=== PATIENT | female | born 1985 | race Caucasian/White ===

== ENCOUNTER 2016-08-02 10:34 | Emergency (ER) | payer OTHER ==
[2016-08-02] MEDS ORDERED: ONDANSETRON 4MG/2ML VIAL (J2405) As Ordered ONE (12:02)
[2016-08-02] MEDS ORDERED: MORPHINE 2 MG/ML 1ML SYRINGE As Ordered ONE (12:02)
[2016-08-02 12:18] LABS: BASO % 0.2 % (0.0-1.0); EOS # 0.2 K/mm3 (0.0-0.50); EOS % 1.4 % (0.0-3.0); LARGE UNSTAINED CELL # 0.1 K/mm3 (0.0-0.4); LARGE UNSTAINED CELL % 0.9 % (0.0-4.0); LYMPH # 1.9 K/mm3 (1.5-4.5); LYMPH % 17.9 % (24.0-44.0); MEAN CORPUSCULAR HEMOGLOBIN 29.9 pg (27.0-33.0); MEAN CORPUSCULAR HGB CONC 34.2 g/dl (32.0-36.5); MEAN CORPUSCULAR VOLUME 87.4 fl (80.0-96.0); MONO # 0.3 K/mm3 (0.0-0.8); MONO % 3.1 % (0.0-5.0); NEUTROPHILS # 8.1 K/mm3 (1.8-7.7); NEUTROPHILS % 76.6 % (36.0-66.0); PLATELET COUNT, AUTOMATED 283 k/mm3 (150-450); RED CELL DISTRIBUTION WIDTH 12.5 % (11.5-14.5); WHITE BLOOD COUNT 10.5 K/mm3 (4.0-10.0)
[2016-08-02 12:37] LABS: ALBUMIN 3.7 GM/DL (3.2-5.2); ALBUMIN/GLOBULIN RATIO 0.86 (1.00-1.93); ALKALINE PHOSPHATASE 132 U/L (45-117); ALT/SGPT 12 U/L (12-78); ANION GAP 7 MEQ/L (8-16); AST/SGOT 19 U/L (15-37); BILIRUBIN,DIRECT < 0.1 MG/DL (0.0-0.2); BILIRUBIN,TOTAL 0.5 MG/DL (0.2-1.0); BLOOD UREA NITROGEN 11 MG/DL (7-18); CALCIUM LEVEL 8.7 MG/DL (8.5-10.1); CARBON DIOXIDE LEVEL 27 MEQ/L (21-32); CHLORIDE LEVEL 104 MEQ/L (98-107); GLOMERULAR FILTRATION RATE > 60.0 (>60); GLUCOSE, FASTING 85 MG/DL (70-105); HCG, SERUM QUANTITATIVE 56 MIU/ML; POTASSIUM SERUM 3.9 MEQ/L (3.5-5.1); SODIUM LEVEL 138 MEQ/L (136-145)
--- NOTE | 2016-08-02 13:13 | REP ---
Clinical: with vaginal bleeding and right lower quadrant pain. Technique: Transabdominal and transvaginal imaging with color Doppler evaluation of the maternal ovaries and fetus if possible. Findings: Anteverted uterus measures 6.0 x 3.4 x 4.1 cm without intrauterine identified. The bilateral ovaries are identified with normal vascularity and no evidence for torsion as well as 2.2 cm presumed left corpus luteal cyst. Right ovary measures 3.0 x 2.0 x 2.8 cm; RI equal 0.55. Left ovary measures 2.9 x 2.6 x 2.2 cm; RI equal 0.48. A moderate amount of fluid is identified in the pelvis - some of which appears complex, there is a complex structure in the right adnexa adjacent to what is believed to be the normal ovary which measures roughly 1.7 cm diameter. Findings cannot exclude ruptured right ectopic in close clinical observation is required. Impression: Moderate amount of partially complex fluid in the pelvis ill-defined right adnexal structure separate from the right ovary. There is no intrauterine , and findings are highly suspicious for ruptured ectopic . Correlation with serial HCG levels and close clinical observation is recommended. Signed by Destin Bender MD 08/02/2016 01:05 P
--- NOTE | 2016-08-02 13:37 | EDDOCDS ---
Physician Documentation [facility] Name: Divya Dunbar Age: 31 yrs Sex: Female : 1985 Arrival Date: 08/02/2016 Time: 10:34 Bed I2 / M2 Private MD: NO PRIMARY PHYSICIAN, . Disposition: 08/02/16 12:56 Discharged to Home/Self Care. Impression: Incomplete spontaneous without complication. - Condition is Stable. - Discharge Instructions: Incomplete Miscarriage. - Prescriptions for Hydrocodone- Acetaminophen 5-325 mg Oral Tablet - take 1 tablet by ORAL route every 6 hours As needed MDD: 4 tabs; 12 tablet. - Medication Reconciliation, Local Pharmacy Hours, Work Release Form - 3 day form. - Follow up: Emergency Department; When: As needed; Reason: Worsening of conditions. Follow up: Fela Hdz MD; When: 4 - 5 days; Reason: Wound/Symptom Recheck, Recheck today's complaints, Worsening of conditions, Continuance of care. - Problem is new. - Symptoms have improved. - Notes: Return to the ER on for a Beta-HCG recheck. Your value today is 56. Return sooner for any new or worse symptoms. Historical: - Allergies: No known drug Allergies; - Home Meds: 1. Vitamin Oral 1 tab once daily - PMHx: vaginal bleeding; - PSHx: teeth extraction; Tubes in ears; - Social history: Smoking status: Patient states was never smoker of tobacco. No barriers to communication noted, The patient speaks fluent Anguillan. - Family history: Not pertinent. - : The pt / caregiver states he / she is not on anticoagulants. Home medication list is obtained from the patient. - Exposure Risk Screening:: None identified. 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 11 in. (149.86 cm); Pain 5/10; 12:45 BP 114 / 85; Pulse 78; Resp 18; Temp 98.1; Pulse Ox 98% ; Pain 3/10; jam1 12:45 Pain 3/10; dsf 10:36 Body Mass Index 40.60 (91.17 kg, 149.86 cm) cmb MDM: 10:48 IV Saline Lock ordered. dt4 10:49 Hcg, Serum Quantitative Ordered. EDMS 10:49 CBC with Diff Ordered. EDMS 10:49 Basic Metabolic Profile Ordered. EDMS 10:49 Urinalysis Ordered. EDMS 10:49 Urine Culture Ordered. EDMS 10:49 Type & Screen Ordered. EDMS 11:55 Undress patient appropriately for examination ordered. cc10 11:55 Ondansetron 4 mg IVP once ordered. cc10 11:56 morphine 2 mg IVP once ordered. cc10 11:56 US 1st trimester Ordered. EDMS 12:01 LIVER PROFILE Ordered. EDMS 12:40 TRANSVAGINAL US Ordered. EDMS 12:40 DUPLEX SCAN LIMITED (DOPPLER) Ordered. EDMS 12:44 NOTHING BY MOUTH+DIET ordered. EDMS 12:53 CBC with Diff Reviewed. cc10 12:53 Basic Metabolic Profile Reviewed. cc10 12:53 Urinalysis Reviewed. cc10 12:53 LIVER PROFILE Reviewed. cc10 12:53 Hcg, Serum Quantitative Reviewed. cc10 13:14 Financial registration complete. lg Administered Medications: 12:08 Drug: morphine 2 mg [morphine 2 mg/mL intravenous cartridge (1 mL)] Route: IVP; Site: dsf right antecubital; 12:45 Follow up: Pain 3/10 Adult; see charted VS dsf 12:09 Drug: Ondansetron 4 mg [ondansetron HCl 2 mg/mL intravenous solution (2 mL)] Route: dsf IVP; Site: left antecubital; Signatures: Dispatcher [employer] EDMS Carina Brasher, RN RN kcs Ethan Contreras, Reg Reg Taylor Durham RN RN dsf Rigoberto Phillip PA-C PA-C cc10 Ami Donnelly PA-C PA-C dt4 The chart was reviewed and I authenticate all verbal orders and agree with the evaluation and treatment provided.Corrections: (The following items were deleted from the chart) 12:00 11:56 LIVER PROFILE+LAB ordered. EDMS EDMS MTDD
--- NOTE | 2016-08-02 13:37 | EDDOCDS ---
Nurse's Notes [facility] Name: Divya Dunbar Age: 31 yrs Sex: Female : 1985 Arrival Date: 08/02/2016 Time: 10:34 Bed I2 / M2 Private MD: NO PRIMARY PHYSICIAN, . Diagnosis: Incomplete spontaneous without complication Presentation: 08/02 10:42 Presenting complaint: Patient states: she is having severe right sided abdominal pain kcs and vaginal bleeding for the last 2 days - is 5 weeks . Risk factors: The patient reports no loss of conciousness prior to arrival. This patient has not had a hysterectomy. This patient has not begun menopause. Adult Sepsis Screening: The patient does not have new or worsening altered mentation. Patient's respiratory rate is less than 22. Systolic blood pressure is greater than 100. Patient has a qSOFA score of 0- Negative Sepsis Screen. Suicide/Homicide risk assessment- the patient denies having any suicidal and/or homicidal ideations and does not present with any other emotional, behavioral or mental health complaints. 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 Transition of care: patient was not received from another setting of care. 10:42 Acuity: KASSI Level 3 kcs 10:42 Method Of Arrival: Walkin/Carried/Asstd kcs Triage Assessment: 10:44 General: Appears comfortable, obese, well developed, well nourished, well groomed, kcs Behavior is cooperative, pleasant. Pain: Location: right lower abdomen Pain currently is 5 out of 10 on a pain scale. At worst was 7 out of 10 on a pain scale. HIV screening NA for this visit Offered previously. Neurological: Level of Consciousness is awake, alert. Respiratory: Airway is patent Respiratory effort is even, unlabored, Respiratory pattern is regular, symmetrical. : Reports vaginal bleeding that is heavy flow. Derm: Skin is intact, is healthy with good turgor, Skin is dry, Skin is normal. 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 Vitamin Oral 1 tab once daily - PMHx: vaginal bleeding; - PSHx: teeth extraction; Tubes in ears; - Social history: Smoking status: Patient states was never smoker of tobacco. No barriers to communication noted, The patient speaks fluent Russian. - Family history: Not pertinent. - : The pt / caregiver states he / she is not on anticoagulants. Home medication list is obtained from the patient. - Exposure Risk Screening:: None identified. Screenin:51 Screening information is obtained from the patient. Primary language is Russian. Fall jam1 risk: No risks identified. Assistance ADL's: requires no assistance with activities of daily living. Abuse/DV Screen: The patient / caregiver reports he/she is: not in a situation that causes fear, pain or injury. Nutritional screening: No deficits noted. Exposure Risk Screening: None identified. Advance Directives: Currently, there is no health care proxy. There is no active DNR order. There is no living will. There is no Power of Mandrel Cleaner. Advance directive information has not previously been placed in an [facility] medical record. Further advance directive information is declined. home support is adequate. Assessment: 12:00 Adult Sepsis Screening: The patient does not have new or worsening altered mentation. dsf Patient's respiratory rate is less than 22. Systolic blood pressure is greater than 100. Patient has a qSOFA score of 0- Negative Sepsis Screen. General: Appears in no apparent distress, Behavior is appropriate for age, cooperative. Pain: Location: right lower quadrant Pain currently is 6 out of 10 on a pain scale. Quality of pain is described as sharp. Neurological: Level of Consciousness is awake, alert, Oriented to person, place, time. Cardiovascular: Capillary refill < 3 seconds Heart tones S1 S2 present. Respiratory: Airway is patent Respiratory effort is even, unlabored, Respiratory pattern is regular, symmetrical, Breath sounds are clear bilaterally. GI: Abdomen is non- distended Bowel sounds present X 4 quads. Abd is soft X 4 quads Abd is tender to palpation in right lower quadrant and left lower quadrant. : Reports vaginal bleeding that is bright red light flow since 2 days ago. Derm: Skin is pink, warm & dry. 13:02 Adult Sepsis Screening: The patient does not have new or worsening altered mentation. dsf Patient's respiratory rate is less than 22. Systolic blood pressure is greater than 100. Patient has a qSOFA score of 0- Negative Sepsis Screen. General: Appears in no apparent distress, Behavior is crying. Neurological: Level of Consciousness is awake, alert, Oriented to person, place, time. Cardiovascular: No deficits noted. Respiratory: No deficits noted. Derm: Skin is pink, warm & dry. Vital Signs: 10:36 BP 143 / 81; Pulse 88; Resp 18; Temp 99.1(O); Pulse Ox 98% ; Weight 91.17 kg; Height 4 cmb ft. 11 in. (149.86 cm); Pain 5/10; 12:45 BP 114 / 85; Pulse 78; Resp 18; Temp 98.1; Pulse Ox 98% ; Pain 3/10; jam1 12:45 Pain 3/10; dsf 10:36 Body Mass Index 40.60 (91.17 kg, 149.86 cm) cmb Vitals: 10:36 Log In Time: August 02, 2016 at 10:25. cmb ED Course: 10:36 Patient visited by Guadalupe Lazar. cmb 10:36 NO PRIMARY PHYSICIAN, . is Private Physician. cmb 10:36 Patient moved to Waiting cmb 10:37 Patient moved to Pre RCE cmb 10:43 Triage Initiated kcs 11:31 Patient moved to Triage 2 rs3 11:35 Patient visited by Sandra Lozano, RN. mk4 11:36 Patient visited by Sandra Lozano RN. mk4 11:46 Rigoberto Phillip PA-C is PHCP. cc10 11:46 Calos Bautista MD is Attending Physician. cc10 11:46 Patient moved to I2 / M2 kcs 11:51 Pt greeted and oriented to ED. Patient advised of names of staff involved in care, jam1 location of call melo, wait times and NPO status. Patient has correct armband on for positive identification. Placed in gown. Bed in low position. Call light in reach. Side rails up X 1. Door closed. 11:51 Urine Culture Sent. dsf 11:51 Urinalysis Sent. dsf 11:57 Patient visited by Rigoberto Phillip PA-C. cc10 11:57 Patient visited by Rigoberto Phillip PA-C. cc10 12:00 Basic Metabolic Profile Sent. dsf 12:00 CBC with Diff Sent. dsf 12:00 Hcg, Serum Quantitative Sent. dsf 12:00 Type & Screen Sent. dsf 12:00 Inserted saline lock: 20 gauge in right antecubital area The patient tolerated the dsf procedure well. 12:01 Patient visited by Taylor Agrawal RN. dsf 12:22 Patient moved to Ultrasound am17 12:46 Patient moved to I2 / M2 am17 12:55 Fela Hdz MD is Referral Physician. cc10 13:02 The patient / caregiver is instructed regarding the plan of care and ED course. dsf 13:02 Discontinued lock intact, bleeding controlled, pressure dressing applied, No dsf redness/swelling at site. No procedures done that require assistance. Administered Medications: 12:08 Drug: morphine 2 mg [morphine 2 mg/mL intravenous cartridge (1 mL)] Route: IVP; Site: dsf right antecubital; 12:45 Follow up: Pain 09/28 Adult; see charted VS dsf 12:09 Drug: Ondansetron 4 mg [ondansetron HCl 2 mg/mL intravenous solution (2 mL)] Route: dsf IVP; Site: left antecubital; Intake: Order Results: Lab Order: Type & Screen; SPEC'M 08/02/16 11:58 Test: BLOOD TYPE; Value: O POS; Status: F Test: AB SCREEN (INDIRECT HARINI)GEL; Value: NEGATIVE; Status: F Lab Order: Hcg, Serum Quantitative; SPEC'M 08/02/16 11:58 Test: HCG, SERUM QUANTITATIVE; Value: 56; Units: MIU/ML; Status: F Test Note: ; GESTATIONAL AGE APPROXIMATE HCG RANGE (MIU/ML) 0.2-1 WEEK 5-50 1-2 WEEKS 50-500 2-3 WEEKS 100-5,000 3-4 WEEKS 500-10,000 4-5 WEEKS 1,000-50,000 5-6 WEEKS 10,000-100,000 6-8 WEEKS 15,000-200,000 2-3 MONTHS 10,000-100,000 NON FEMALES LESS THAN 3.0 Patient samples may contain human heterophilic antibodies that could react with immunoassays to give falsely elevated or depressed results. This assay has been designed to minimize interference from heterophilic antibodies. Elevated hCG levels have also been associated with trophoblastic disease and nontrophoblastic neoplasms. The possibility of having these diseases should be considered before a diagnosis of is made. This test is not intended for use as a surrogate marker for aiding in the diagnosis or monitoring the treatment of cancer patients. Siemens Zapproved methodology. Lab Order: CBC with Diff; SPEC'M 08/02/16 11:58 Test: WHITE BLOOD COUNT; Value: 10.5; Range: 4.0-10.0; Abnormal: Above high normal; Units: K/mm3; Status: F Test: RED BLOOD COUNT; Value: 4.40; Range: 4.00-5.40; Units: M/mm3; Status: F Test: HEMOGLOBIN; Value: 13.2; Range: 12.0-16.0; Units: g/dl; Status: F Test: HEMATOCRIT; Value: 38.4; Range: 36.0-47.0; Units: %; Status: F Test: MEAN CORPUSCULAR VOLUME; Value: 87.4; Range: 80.0-96.0; Units: fl; Status: F Test: MEAN CORPUSCULAR HEMOGLOBIN; Value: 29.9; Range: 27.0-33.0; Units: pg; Status: F Test: MEAN CORPUSCULAR HGB CONC; Value: 34.2; Range: 32.0-36.5; Units: g/dl; Status: F Test: RED CELL DISTRIBUTION WIDTH; Value: 12.5; Range: 11.5-14.5; Units: %; Status: F Test: PLATELET COUNT, AUTOMATED; Value: 283; Range: 150-450; Units: k/mm3; Status: F Test: NEUTROPHILS %; Value: 76.6; Range: 36.0-66.0; Abnormal: Above high normal; Units: %; Status: F Test: LYMPH %; Value: 17.9; Range: 24.0-44.0; Abnormal: Below low normal; Units: %; Status: F Test: MONO %; Value: 3.1; Range: 0.0-5.0; Units: %; Status: F Test: EOS %; Value: 1.4; Range: 0.0-3.0; Units: %; Status: F Test: BASO %; Value: 0.2; Range: 0.0-1.0; Units: %; Status: F Test: LARGE UNSTAINED CELL %; Value: 0.9; Range: 0.0-4.0; Units: %; Status: F Test: NEUTROPHILS #; Value: 8.1; Range: 1.8-7.7; Abnormal: Above high normal; Units: K/mm3; Status: F Test: LYMPH #; Value: 1.9; Range: 1.5-4.5; Units: K/mm3; Status: F Test: MONO #; Value: 0.3; Range: 0.0-0.8; Units: K/mm3; Status: F Test: EOS #; Value: 0.2; Range: 0.0-0.50; Units: K/mm3; Status: F Test: BASO #; Value: 0.0; Range: 0.0-0.2; Units: K/mm3; Status: F Test: LARGE UNSTAINED CELL #; Value: 0.1; Range: 0.0-0.4; Units: K/mm3; Status: F Lab Order: Basic Metabolic Profile; [facility] 08/02/16 11:58 Test: GLUCOSE, FASTING; Value: 85; Range: 70-105; Units: MG/DL; Status: F Test: BLOOD UREA NITROGEN; Value: 11; Range: 7-18; Units: MG/DL; Status: F Test: CREATININE FOR GFR; Value: 0.70; Range: 0.55-1.02; Units: MG/DL; Status: F Test: GLOMERULAR FILTRATION RATE; Value: > 60.0; Range: >60; Status: F Test: SODIUM LEVEL; Value: 138; Range: 136-145; Units: MEQ/L; Status: F Test: POTASSIUM SERUM; Value: 3.9; Range: 3.5-5.1; Units: MEQ/L; Status: F Test: CHLORIDE LEVEL; Value: 104; Range: 98-107; Units: MEQ/L; Status: F Test: CARBON DIOXIDE LEVEL; Value: 27; Range: 21-32; Units: MEQ/L; Status: F Test: ANION GAP; Value: 7; Range: 8-16; Abnormal: Below low normal; Units: MEQ/L; Status: F Test: CALCIUM LEVEL; Value: 8.7; Range: 8.5-10.1; Units: MG/DL; Status: F Test Note: ; Units are mL/min/1.73 m2 Chronic Kidney Disease Staging per NKF: Stage I & II GFR >=60 Normal to Mildly Decreased Stage III GFR 30-59 Moderately Decreased Stage IV GFR 15-29 Severely Decreased Stage V GFR <15 Very Little GFR Left ESRD GFR <15 on GRANT MANAGER Lab Order: Urinalysis; SPEC'M 08/02/16 11:39 Test: APPEARANCE, URINE; Value: CLOUDY; Range: CLEAR; Abnormal: Above high normal; Status: F Test: COLOR, URINE; Value: YELLOW; Range: YELLOW; Status: F Test: PH,URINE; Value: 8.0; Range: 5.0-9.0; Units: UNITS; Status: F Test: SPECIFIC GRAVITY URINE AUTO; Value: 1.016; Range: 1.002-1.035; Status: F Test: PROTEIN, URINE AUTO; Value: NEGATIVE; Range: NEGATIVE; Units: mg/dL; Status: F Test: GLUCOSE, URINE (UA) AUTO; Value: NEGATIVE; Range: NEGATIVE; Units: mg/dL; Status: F Test: KETONE, URINE AUTO; Value: NEGATIVE; Range: NEGATIVE; Units: mg/dL; Status: F Test: UROBILINOGEN, URINE AUTO; Value: 0.2; Range: 0.0-2.0; Units: mg/dL; Status: F Test: BILIRUBIN, URINE AUTO; Value: NEGATIVE; Range: NEGATIVE; Status: F Test: NITRITE, URINE AUTO; Value: NEGATIVE; Range: NEGATIVE; Status: F Test: LEUKOCYTE ESTERASE, URINE AUTO; Value: NEGATIVE; Range: NEGATIVE; Status: F Test: BLOOD, URINE BLOOD; Value: 3+; Range: NEGATIVE; Abnormal: Above high normal; Status: F Test: WBC, URINE AUTO; Value: 2; Range: 0-3; Units: /HPF; Status: F Test: RBC, URINE AUTO; Value: 30; Range: 0-3; Abnormal: Above high normal; Units: /HPF; Status: F Test: BACTERIA, URINE AUTO; Value: 3+; Range: NEGATIVE; Abnormal: Above high normal; Status: F Test: SQUAMOUS EPITHELIAL CELL UR AU; Value: 0; Range: 0-6; Units: /HPF; Status: F Test: HYALINE CAST, URINE AUTO; Value: 0; Range: 0-1; Units: /LPF; Status: F Lab Order: LIVER PROFILE; SPEC'M 08/02/16 11:58 Test: AST/SGOT; Value: 19; Range: 15-37; Units: U/L; Status: F Test: ALT/SGPT; Value: 12; Range: 12-78; Units: U/L; Status: F Test: ALKALINE PHOSPHATASE; Value: 132; Range: 45-117; Abnormal: Above high normal; Units: U/L; Status: F Test: BILIRUBIN,TOTAL; Value: 0.5; Range: 0.2-1.0; Units: MG/DL; Status: F Test: BILIRUBIN,DIRECT; Value: < 0.1; Range: 0.0-0.2; Units: MG/DL; Status: F Test: TOTAL PROTEIN; Value: 8.0; Range: 6.4-8.2; Units: GM/DL; Status: F Test: ALBUMIN; Value: 3.7; Range: 3.2-5.2; Units: GM/DL; Status: F Test: ALBUMIN/GLOBULIN RATIO; Value: 0.86; Range: 1.00-1.93; Abnormal: Below low normal; Status: F Outcome: 12:56 Discharge ordered by Provider. cc10 13:02 Discharge Assessment: Patient awake, alert and oriented x 3. No cognitive and/or dsf functional deficits noted. Patient verbalized understanding of disposition instructions. patient administered narcotics - yes. Pt provided with safe discharge. The following High Risk Discharge criteria are identified: None. Discharged to home ambulatory. Condition: stable. Discharge instructions given to patient, Instructed on discharge instructions, follow up and referral plans. medication usage, no driving heavy equipment, Demonstrated understanding of instructions, medications, Pt was receptive of discharge instructions/ teaching. Prescriptions given X 1. Ultrasound Study completed. Property sent home with patient. 13:36 Patient left the ED. f Signatures: Carina Brasher, RN RN Bridgette Scruggs, SEARCH PLANNER SEARCH PLANNER [email or web address] Danii Rocha RN RN rs3 Taylor Agrawal RN RN dsf Guadalupe Lazar Margaret, RN RN mk4 Valeri Alvares am17 Rigoberto Phillip, PA-C PA-C cc10 Corrections: (The following items were deleted from the chart) 12:00 12:00 LIVER PROFILE+LAB sent. dsf EDMS MTDD
--- NOTE | 2016-08-04 14:37 | EDDOCDS ---
Physician Documentation [facility] Name: Divya Dunbar Age: 31 yrs Sex: Female : 1985 Arrival Date: 08/02/2016 Time: 10:34 Bed I2 / M2 Private MD: NO PRIMARY PHYSICIAN, . Disposition: 08/02 13:43 Chart complete. Chart complete. cc10 Disposition: 08/02/16 12:56 Discharged to Home/Self Care. Impression: Incomplete spontaneous without complication. - Condition is Stable. - Discharge Instructions: Incomplete Miscarriage. - Prescriptions for Hydrocodone- Acetaminophen 5-325 mg Oral Tablet - take 1 tablet by ORAL route every 6 hours As needed MDD: 4 tabs; 12 tablet. - Medication Reconciliation, Local Pharmacy Hours, Work Release Form - 3 day form. - Follow up: Emergency Department; When: As needed; Reason: Worsening of conditions. Follow up: Fela Hdz MD; When: 4 - 5 days; Reason: Wound/Symptom Recheck, Recheck today's complaints, Worsening of conditions, Continuance of care. - Problem is new. - Symptoms have improved. - Notes: Return to the ER on for a Beta-HCG recheck. Your value today is 56. Return sooner for any new or worse symptoms. Historical: - Allergies: No known drug Allergies; - Home Meds: 1. Vitamin Oral 1 tab once daily - PMHx: vaginal bleeding; - PSHx: teeth extraction; Tubes in ears; - Social history: Smoking status: Patient states was never smoker of tobacco. No barriers to communication noted, The patient speaks fluent Italian. - Family history: Not pertinent. - : The pt / caregiver states he / she is not on anticoagulants. Home medication list is obtained from the patient. - Exposure Risk Screening:: None identified. 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 11 in. (149.86 cm); Pain 5/10; 12:45 BP 114 / 85; Pulse 78; Resp 18; Temp 98.1; Pulse Ox 98% ; Pain 3/10; jam1 12:45 Pain 3/10; dsf 10:36 Body Mass Index 40.60 (91.17 kg, 149.86 cm) cmb Procedures: 13:44 Ultrasound: Discussed results of the ultrasound with Dr. Hdz twice and he does feel cc10 this is a miscarriage. Given her findings and the decrease in her HCG. She is to return on Saturday for a recheck. Strict return instructions given to the patient and close f/u advised. . MDM: 10:48 IV Saline Lock ordered. dt4 10:49 Hcg, Serum Quantitative Ordered. EDMS 10:49 CBC with Diff Ordered. EDMS 10:49 Basic Metabolic Profile Ordered. EDMS 10:49 Urinalysis Ordered. EDMS 10:49 Urine Culture Ordered. EDMS 10:49 Type & Screen Ordered. EDMS 11:55 Undress patient appropriately for examination ordered. cc10 11:55 Ondansetron 4 mg IVP once ordered. cc10 11:56 morphine 2 mg IVP once ordered. cc10 11:56 US 1st trimester Ordered. EDMS 12:01 LIVER PROFILE Ordered. EDMS 12:40 TRANSVAGINAL US Ordered. EDMS 12:40 DUPLEX SCAN LIMITED (DOPPLER) Ordered. EDMS 12:44 NOTHING BY MOUTH+DIET ordered. EDMS 12:53 CBC with Diff Reviewed. cc10 12:53 Basic Metabolic Profile Reviewed. cc10 12:53 Urinalysis Reviewed. cc10 12:53 LIVER PROFILE Reviewed. cc10 12:53 Hcg, Serum Quantitative Reviewed. cc10 13:14 Financial registration complete. lg 14:00 [facility] Payment Agreement was scanned into Qwbcg and attached to record. lg 08/03 09:38 T-Sheet-- Draft Copy was scanned into Qwbcg and attached to record. gb 09:38 Radiology Report was scanned into Qwbcg and attached to record. gb Administered Medications: 08/02 12:08 Drug: morphine 2 mg [morphine 2 mg/mL intravenous cartridge (1 mL)] Route: IVP; Site: dsf right antecubital; 12:45 Follow up: Pain 3/10 Adult; see charted VS dsf 12:09 Drug: Ondansetron 4 mg [ondansetron HCl 2 mg/mL intravenous solution (2 mL)] Route: dsf IVP; Site: left antecubital; Signatures: Dispatcher [employer] EDMS Carina Brasher RN RN kcs Sharonda Kam, Reg Reg gb Ethan Contreras, Reg Reg lg Tayolr Agrawal RN RN dsf [place], Colin, GISELLE PAEric cc10 Ami Donnelly PA-C PAEric dt4 The chart was reviewed and I authenticate all verbal orders and agree with the evaluation and treatment provided.Corrections: (The following items were deleted from the chart) 12:00 11:56 LIVER PROFILE+LAB ordered. EDMS EDMS Attachments: 14:00 [facility] Payment Agreement lg 08/03 09:38 T-Sheet-- Draft Copy gb Chart Complete MTDD
--- NOTE | 2016-08-04 14:37 | EDDOCDS ---
[facility] Name: Divya Dunbar Age: 31 yrs Sex: Female : 1985 Arrival Date: 08/02/2016 Time: 10:34 Bed I2 / M2 Private MD: NO PRIMARY PHYSICIAN, . Diagnosis: Incomplete spontaneous without complication Presentation: 08/02 10:42 Presenting complaint: Patient states: she is having severe right sided abdominal pain kcs and vaginal bleeding for the last 2 days - is 5 weeks . Risk factors: The patient reports no loss of conciousness prior to arrival. This patient has not had a hysterectomy. This patient has not begun menopause. Adult Sepsis Screening: The patient does not have new or worsening altered mentation. Patient's respiratory rate is less than 22. Systolic blood pressure is greater than 100. Patient has a qSOFA score of 0- Negative Sepsis Screen. Suicide/Homicide risk assessment- the patient denies having any suicidal and/or homicidal ideations and does not present with any other emotional, behavioral or mental health complaints. Status: Patient is not a surgical services director or dependent. Transition of care: patient was not received from another setting of care. 10:42 Acuity: KASSI Level 3 kcs 10:42 Method Of Arrival: Walkin/Carried/Asstd kcs Triage Assessment: 10:44 General: Appears comfortable, obese, well developed, well nourished, well groomed, kcs Behavior is cooperative, pleasant. Pain: Location: right lower abdomen Pain currently is 5 out of 10 on a pain scale. At worst was 7 out of 10 on a pain scale. HIV screening NA for this visit Offered previously. Neurological: Level of Consciousness is awake, alert. Respiratory: Airway is patent Respiratory effort is even, unlabored, Respiratory pattern is regular, symmetrical. : Reports vaginal bleeding that is heavy flow. Derm: Skin is intact, is healthy with good turgor, Skin is dry, Skin is normal. FINANCIAL SYSTEMS ANALYST: 10:44 1, Full Term 0, Premature 0, 0, Living 0, LMP 06/13/2016 kcs Historical: - Allergies: No known drug Allergies; - Home Meds: 1. Vitamin Oral 1 tab once daily - PMHx: vaginal bleeding; - PSHx: teeth extraction; Tubes in ears; - Social history: Smoking status: Patient states was never smoker of tobacco. No barriers to communication noted, The patient speaks fluent Barbadian. - Family history: Not pertinent. - : The pt / caregiver states he / she is not on anticoagulants. Home medication list is obtained from the patient. - Exposure Risk Screening:: None identified. Screenin:51 Screening information is obtained from the patient. Primary language is Barbadian. Fall jam1 risk: No risks identified. Assistance ADL's: requires no assistance with activities of daily living. Abuse/DV Screen: The patient / caregiver reports he/she is: not in a situation that causes fear, pain or injury. Nutritional screening: No deficits noted. Exposure Risk Screening: None identified. Advance Directives: Currently, there is no health care proxy. There is no active DNR order. There is no living will. There is no Power of Supervisor D[place]. Advance directive information has not previously been placed in an [facility] medical record. Further advance directive information is declined. home support is adequate. Assessment: 12:00 Adult Sepsis Screening: The patient does not have new or worsening altered mentation. dsf Patient's respiratory rate is less than 22. Systolic blood pressure is greater than 100. Patient has a qSOFA score of 0- Negative Sepsis Screen. General: Appears in no apparent distress, Behavior is appropriate for age, cooperative. Pain: Location: right lower quadrant Pain currently is 6 out of 10 on a pain scale. Quality of pain is described as sharp. Neurological: Level of Consciousness is awake, alert, Oriented to person, place, time. Cardiovascular: Capillary refill < 3 seconds Heart tones S1 S2 present. Respiratory: Airway is patent Respiratory effort is even, unlabored, Respiratory pattern is regular, symmetrical, Breath sounds are clear bilaterally. GI: Abdomen is non- distended Bowel sounds present X 4 quads. Abd is soft X 4 quads Abd is tender to palpation in right lower quadrant and left lower quadrant. : Reports vaginal bleeding that is bright red light flow since 2 days ago. Derm: Skin is pink, warm & dry. 13:02 Adult Sepsis Screening: The patient does not have new or worsening altered mentation. dsf Patient's respiratory rate is less than 22. Systolic blood pressure is greater than 100. Patient has a qSOFA score of 0- Negative Sepsis Screen. General: Appears in no apparent distress, Behavior is crying. Neurological: Level of Consciousness is awake, alert, Oriented to person, place, time. Cardiovascular: No deficits noted. Respiratory: No deficits noted. Derm: Skin is pink, warm & dry. Vital Signs: 10:36 BP 143 / 81; Pulse 88; Resp 18; Temp 99.1(O); Pulse Ox 98% ; Weight 91.17 kg; Height 4 cmb ft. 11 in. (149.86 cm); Pain 5/10; 12:45 BP 114 / 85; Pulse 78; Resp 18; Temp 98.1; Pulse Ox 98% ; Pain 3/10; jam1 12:45 Pain 3/10; dsf 10:36 Body Mass Index 40.60 (91.17 kg, 149.86 cm) cmb Vitals: 10:36 Log In Time: August 02, 2016 at 10:25. cmb ED Course: 10:36 Patient visited by Guadalupe Lazar. cmb 10:36 NO PRIMARY PHYSICIAN, . is Private Physician. cmb 10:36 Patient moved to Waiting cmb 10:37 Patient moved to Pre RCE cmb 10:43 Triage Initiated kcs 11:31 Patient moved to Triage 2 rs3 11:35 Patient visited by Sandra Lozano, RN. mk4 11:36 Patient visited by Sandra Lozano RN. mk4 11:46 Rigoberto Phillip PA-C is PHCP. cc10 11:46 Calos Bautista MD is Attending Physician. cc10 11:46 Patient moved to I2 / M2 kcs 11:51 Pt greeted and oriented to ED. Patient advised of names of staff involved in care, jam1 location of call melo, wait times and NPO status. Patient has correct armband on for positive identification. Placed in gown. Bed in low position. Call light in reach. Side rails up X 1. Door closed. 11:51 Urine Culture Sent. dsf 11:51 Urinalysis Sent. dsf 11:57 Patient visited by Rigoberto Phillip PA-C. cc10 11:57 Patient visited by Rigoberto Phillip PA-C. cc10 12:00 Basic Metabolic Profile Sent. dsf 12:00 CBC with Diff Sent. dsf 12:00 Hcg, Serum Quantitative Sent. dsf 12:00 Type & Screen Sent. dsf 12:00 Inserted saline lock: 20 gauge in right antecubital area The patient tolerated the dsf procedure well. 12:01 Patient visited by Taylor Agrawal RN. dsf 12:22 Patient moved to Ultrasound am17 12:46 Patient moved to I2 / M2 am17 12:55 Fela Hdz MD is Referral Physician. cc10 13:02 The patient / caregiver is instructed regarding the plan of care and ED course. dsf 13:02 Discontinued lock intact, bleeding controlled, pressure dressing applied, No dsf redness/swelling at site. No procedures done that require assistance. 13:45 US 1st trimester Returned. EDMS 14:00 [facility] Payment Agreement was scanned into [employer] and attached to record. lg 08/03 09:38 T-Sheet-- Draft Copy was scanned into [employer] and attached to record. gb 09:38 Radiology Report was scanned into [employer] and attached to record. gb Administered Medications: 08/02 12:08 Drug: morphine 2 mg [morphine 2 mg/mL intravenous cartridge (1 mL)] Route: IVP; Site: dsf right antecubital; 12:45 Follow up: Pain 3/10 Adult; see charted VS dsf 12:09 Drug: Ondansetron 4 mg [ondansetron HCl 2 mg/mL intravenous solution (2 mL)] Route: dsf IVP; Site: left antecubital; Intake: Order Results: Lab Order: Type & Screen; SPEC'M 08/02/16 11:58 Test: BLOOD TYPE; Value: O POS; Status: F Test: AB SCREEN (INDIRECT HARINI)GEL; Value: NEGATIVE; Status: F Lab Order: Hcg, Serum Quantitative; SPEC'M 08/02/16 11:58 Test: HCG, SERUM QUANTITATIVE; Value: 56; Units: MIU/ML; Status: F Test Note: ; GESTATIONAL AGE APPROXIMATE HCG RANGE (MIU/ML) 0.2-1 WEEK 5-50 1-2 WEEKS 50-500 2-3 WEEKS 100-5,000 3-4 WEEKS 500-10,000 4-5 WEEKS 1,000-50,000 5-6 WEEKS 10,000-100,000 6-8 WEEKS 15,000-200,000 2-3 MONTHS 10,000-100,000 NON FEMALES LESS THAN 3.0 Patient samples may contain human heterophilic antibodies that could react with immunoassays to give falsely elevated or depressed results. This assay has been designed to minimize interference from heterophilic antibodies. Elevated hCG levels have also been associated with trophoblastic disease and nontrophoblastic neoplasms. The possibility of having these diseases should be considered before a diagnosis of is made. This test is not intended for use as a surrogate marker for aiding in the diagnosis or monitoring the treatment of cancer patients. Siemens No.1 Traveller methodology. Lab Order: CBC with Diff; SPEC'M 08/02/16 11:58 Test: WHITE BLOOD COUNT; Value: 10.5; Range: 4.0-10.0; Abnormal: Above high normal; Units: K/mm3; Status: F Test: RED BLOOD COUNT; Value: 4.40; Range: 4.00-5.40; Units: M/mm3; Status: F Test: HEMOGLOBIN; Value: 13.2; Range: 12.0-16.0; Units: g/dl; Status: F Test: HEMATOCRIT; Value: 38.4; Range: 36.0-47.0; Units: %; Status: F Test: MEAN CORPUSCULAR VOLUME; Value: 87.4; Range: 80.0-96.0; Units: fl; Status: F Test: MEAN CORPUSCULAR HEMOGLOBIN; Value: 29.9; Range: 27.0-33.0; Units: pg; Status: F Test: MEAN CORPUSCULAR HGB CONC; Value: 34.2; Range: 32.0-36.5; Units: g/dl; Status: F Test: RED CELL DISTRIBUTION WIDTH; Value: 12.5; Range: 11.5-14.5; Units: %; Status: F Test: PLATELET COUNT, AUTOMATED; Value: 283; Range: 150-450; Units: k/mm3; Status: F Test: NEUTROPHILS %; Value: 76.6; Range: 36.0-66.0; Abnormal: Above high normal; Units: %; Status: F Test: LYMPH %; Value: 17.9; Range: 24.0-44.0; Abnormal: Below low normal; Units: %; Status: F Test: MONO %; Value: 3.1; Range: 0.0-5.0; Units: %; Status: F Test: EOS %; Value: 1.4; Range: 0.0-3.0; Units: %; Status: F Test: BASO %; Value: 0.2; Range: 0.0-1.0; Units: %; Status: F Test: LARGE UNSTAINED CELL %; Value: 0.9; Range: 0.0-4.0; Units: %; Status: F Test: NEUTROPHILS #; Value: 8.1; Range: 1.8-7.7; Abnormal: Above high normal; Units: K/mm3; Status: F Test: LYMPH #; Value: 1.9; Range: 1.5-4.5; Units: K/mm3; Status: F Test: MONO #; Value: 0.3; Range: 0.0-0.8; Units: K/mm3; Status: F Test: EOS #; Value: 0.2; Range: 0.0-0.50; Units: K/mm3; Status: F Test: BASO #; Value: 0.0; Range: 0.0-0.2; Units: K/mm3; Status: F Test: LARGE UNSTAINED CELL #; Value: 0.1; Range: 0.0-0.4; Units: K/mm3; Status: F Lab Order: Basic Metabolic Profile; SPEC'M 08/02/16 11:58 Test: GLUCOSE, FASTING; Value: 85; Range: 70-105; Units: MG/DL; Status: F Test: BLOOD UREA NITROGEN; Value: 11; Range: 7-18; Units: MG/DL; Status: F Test: CREATININE FOR GFR; Value: 0.70; Range: 0.55-1.02; Units: MG/DL; Status: F Test: GLOMERULAR FILTRATION RATE; Value: > 60.0; Range: >60; Status: F Test: SODIUM LEVEL; Value: 138; Range: 136-145; Units: MEQ/L; Status: F Test: POTASSIUM SERUM; Value: 3.9; Range: 3.5-5.1; Units: MEQ/L; Status: F Test: CHLORIDE LEVEL; Value: 104; Range: 98-107; Units: MEQ/L; Status: F Test: CARBON DIOXIDE LEVEL; Value: 27; Range: 21-32; Units: MEQ/L; Status: F Test: ANION GAP; Value: 7; Range: 8-16; Abnormal: Below low normal; Units: MEQ/L; Status: F Test: CALCIUM LEVEL; Value: 8.7; Range: 8.5-10.1; Units: MG/DL; Status: F Test Note: ; Units are mL/min/1.73 m2 Chronic Kidney Disease Staging per NKF: Stage I & II GFR >=60 Normal to Mildly Decreased Stage III GFR 30-59 Moderately Decreased Stage IV GFR 15-29 Severely Decreased Stage V GFR <15 Very Little GFR Left ESRD GFR <15 on VP PACKAGING Lab Order: Urinalysis; SPEC'M 08/02/16 11:39 Test: APPEARANCE, URINE; Value: CLOUDY; Range: CLEAR; Abnormal: Above high normal; Status: F Test: COLOR, URINE; Value: YELLOW; Range: YELLOW; Status: F Test: PH,URINE; Value: 8.0; Range: 5.0-9.0; Units: UNITS; Status: F Test: SPECIFIC GRAVITY URINE AUTO; Value: 1.016; Range: 1.002-1.035; Status: F Test: PROTEIN, URINE AUTO; Value: NEGATIVE; Range: NEGATIVE; Units: mg/dL; Status: F Test: GLUCOSE, URINE (UA) AUTO; Value: NEGATIVE; Range: NEGATIVE; Units: mg/dL; Status: F Test: KETONE, URINE AUTO; Value: NEGATIVE; Range: NEGATIVE; Units: mg/dL; Status: F Test: UROBILINOGEN, URINE AUTO; Value: 0.2; Range: 0.0-2.0; Units: mg/dL; Status: F Test: BILIRUBIN, URINE AUTO; Value: NEGATIVE; Range: NEGATIVE; Status: F Test: NITRITE, URINE AUTO; Value: NEGATIVE; Range: NEGATIVE; Status: F Test: LEUKOCYTE ESTERASE, URINE AUTO; Value: NEGATIVE; Range: NEGATIVE; Status: F Test: BLOOD, URINE BLOOD; Value: 3+; Range: NEGATIVE; Abnormal: Above high normal; Status: F Test: WBC, URINE AUTO; Value: 2; Range: 0-3; Units: /HPF; Status: F Test: RBC, URINE AUTO; Value: 30; Range: 0-3; Abnormal: Above high normal; Units: /HPF; Status: F Test: BACTERIA, URINE AUTO; Value: 3+; Range: NEGATIVE; Abnormal: Above high normal; Status: F Test: SQUAMOUS EPITHELIAL CELL UR AU; Value: 0; Range: 0-6; Units: /HPF; Status: F Test: HYALINE CAST, URINE AUTO; Value: 0; Range: 0-1; Units: /LPF; Status: F Lab Order: Urine Culture; SPEC'M 08/02/16 11:39 Test: URINE CULTURE; Value: URINE CULTURE RESULT NO GROWTH; Status: F Lab Order: LIVER PROFILE; SPEC'M 08/02/16 11:58 Test: AST/SGOT; Value: 19; Range: 15-37; Units: U/L; Status: F Test: ALT/SGPT; Value: 12; Range: 12-78; Units: U/L; Status: F Test: ALKALINE PHOSPHATASE; Value: 132; Range: 45-117; Abnormal: Above high normal; Units: U/L; Status: F Test: BILIRUBIN,TOTAL; Value: 0.5; Range: 0.2-1.0; Units: MG/DL; Status: F Test: BILIRUBIN,DIRECT; Value: < 0.1; Range: 0.0-0.2; Units: MG/DL; Status: F Test: TOTAL PROTEIN; Value: 8.0; Range: 6.4-8.2; Units: GM/DL; Status: F Test: ALBUMIN; Value: 3.7; Range: 3.2-5.2; Units: GM/DL; Status: F Test: ALBUMIN/GLOBULIN RATIO; Value: 0.86; Range: 1.00-1.93; Abnormal: Below low normal; Status: F Radiology Order: US 1st trimester Test: US 1st trimester REASON FOR EXAMINATION: Bleeding; Clinical: with vaginal bleeding and right lower quadrant pain.; ; Technique: Transabdominal and transvaginal imaging with color Doppler evaluation; of the maternal ovaries and fetus if possible.; ; Findings:; Anteverted uterus measures 6.0 x 3.4 x 4.1 cm without intrauterine ; identified. The bilateral ovaries are identified with normal vascularity and no; evidence for torsion as well as 2.2 cm presumed left corpus luteal cyst. Right; ovary measures 3.0 x 2.0 x 2.8 cm; RI equal 0.55. Left ovary measures 2.9 x 2.6; x 2.2 cm; RI equal 0.48.; ; A moderate amount of fluid is identified in the pelvis - some of which appears; complex, there is a complex structure in the right adnexa adjacent to what is; believed to be the normal ovary which measures roughly 1.7 cm diameter. Findings; cannot exclude ruptured right ectopic in close clinical observation is; required.; ; Impression:; Moderate amount of partially complex fluid in the pelvis ill-defined right; adnexal structure separate from the right ovary. There is no intrauterine; , and findings are highly suspicious for ruptured ectopic .; Correlation with serial HCG levels and close clinical observation is; recommended.; ; ; Signed by; Destin Bender MD 08/02/2016 01:05 P; Outcome: 12:56 Discharge ordered by Provider. cc10 13:02 Discharge Assessment: Patient awake, alert and oriented x 3. No cognitive and/or dsf functional deficits noted. Patient verbalized understanding of disposition instructions. patient administered narcotics - yes. Pt provided with safe discharge. The following High Risk Discharge criteria are identified: None. Discharged to home ambulatory. Condition: stable. Discharge instructions given to patient, Instructed on discharge instructions, follow up and referral plans. medication usage, no driving heavy equipment, Demonstrated understanding of instructions, medications, Pt was receptive of discharge instructions/ teaching. Prescriptions given X 1. Ultrasound Study completed. Property sent home with patient. 13:36 Patient left the ED. f Signatures: Dispatcher [employer] EDMS Carina Brasher RN RN kcs Bridgette Diana, NANOSYSTEMS ENGINEER NANOSYSTEMS ENGINEER jam1 Sharonda Kam, Reg Reg gb Ethan Contreras, Reg Reg lg Danii Rocha,RN RN rs3 Taylor Agrawal RN RN dsf Guadalupe Lazar Margaret, RN RN mk4 Valeri Alvares am17 Rigoberto Phillip, PA-C PA-C cc10 Corrections: (The following items were deleted from the chart) 12:00 12:00 LIVER PROFILE+LAB sent. [facility] [email or web address]] EDMS Chart Complete MTDD
--- NOTE | 2016-08-04 14:37 | EDDOCDS ---
Physician Documentation [facility] Name: Divya Dunbar Age: 31 yrs Sex: Female : 1985 Arrival Date: 08/02/2016 Time: 10:34 Bed I2 / M2 Private MD: NO PRIMARY PHYSICIAN, . Disposition: 08/02 13:43 Chart complete. Chart complete. cc10 Disposition: 08/02/16 12:56 Discharged to Home/Self Care. Impression: Incomplete spontaneous without complication. - Condition is Stable. - Discharge Instructions: Incomplete Miscarriage. - Prescriptions for Hydrocodone- Acetaminophen 5-325 mg Oral Tablet - take 1 tablet by ORAL route every 6 hours As needed MDD: 4 tabs; 12 tablet. - Medication Reconciliation, Local Pharmacy Hours, Work Release Form - 3 day form. - Follow up: Emergency Department; When: As needed; Reason: Worsening of conditions. Follow up: Fela Hdz MD; When: 4 - 5 days; Reason: Wound/Symptom Recheck, Recheck today's complaints, Worsening of conditions, Continuance of care. - Problem is new. - Symptoms have improved. - Notes: Return to the ER on for a Beta-HCG recheck. Your value today is 56. Return sooner for any new or worse symptoms. Historical: - Allergies: No known drug Allergies; - Home Meds: 1. Vitamin Oral 1 tab once daily - PMHx: vaginal bleeding; - PSHx: teeth extraction; Tubes in ears; - Social history: Smoking status: Patient states was never smoker of tobacco. No barriers to communication noted, The patient speaks fluent Lao. - Family history: Not pertinent. - : The pt / caregiver states he / she is not on anticoagulants. Home medication list is obtained from the patient. - Exposure Risk Screening:: None identified. OVERAGE SHORTAGE AND DAMAGE CLERK: 10:44 1, Full Term 0, Premature 0, 0, Living 0, LMP 06/13/2016 kcs Vital Signs: 10:36 BP 143 / 81; Pulse 88; Resp 18; Temp 99.1(O); Pulse Ox 98% ; Weight 91.17 kg / 201 lbs; cmb Height 4 ft. 11 in. (149.86 cm); Pain 5/10; 12:45 BP 114 / 85; Pulse 78; Resp 18; Temp 98.1; Pulse Ox 98% ; Pain 3/10; jam1 12:45 Pain 3/10; dsf 10:36 Body Mass Index 40.60 (91.17 kg, 149.86 cm) cmb Procedures: 13:44 Ultrasound: Discussed results of the ultrasound with Dr. Hdz twice and he does feel cc10 this is a miscarriage. Given her findings and the decrease in her HCG. She is to return on Saturday for a recheck. Strict return instructions given to the patient and close f/u advised. . MDM: 10:48 IV Saline Lock ordered. dt4 10:49 Hcg, Serum Quantitative Ordered. EDMS 10:49 CBC with Diff Ordered. EDMS 10:49 Basic Metabolic Profile Ordered. EDMS 10:49 Urinalysis Ordered. EDMS 10:49 Urine Culture Ordered. EDMS 10:49 Type & Screen Ordered. EDMS 11:55 Undress patient appropriately for examination ordered. cc10 11:55 Ondansetron 4 mg IVP once ordered. cc10 11:56 morphine 2 mg IVP once ordered. cc10 11:56 US 1st trimester Ordered. EDMS 12:01 LIVER PROFILE Ordered. EDMS 12:40 TRANSVAGINAL US Ordered. EDMS 12:40 DUPLEX SCAN LIMITED (DOPPLER) Ordered. EDMS 12:44 NOTHING BY MOUTH+DIET ordered. EDMS 12:53 CBC with Diff Reviewed. cc10 12:53 Basic Metabolic Profile Reviewed. cc10 12:53 Urinalysis Reviewed. cc10 12:53 LIVER PROFILE Reviewed. cc10 12:53 Hcg, Serum Quantitative Reviewed. cc10 13:14 Financial registration complete. lg 14:00 [facility] Payment Agreement was scanned into [employer] and attached to record. lg 08/03 09:38 T-Sheet-- Draft Copy was scanned into [employer] and attached to record. gb 09:38 Radiology Report was scanned into [employer] and attached to record. gb Administered Medications: 08/02 12:08 Drug: morphine 2 mg [morphine 2 mg/mL intravenous cartridge (1 mL)] Route: IVP; Site: dsf right antecubital; 12:45 Follow up: Pain 3/10 Adult; see charted VS dsf 12:09 Drug: Ondansetron 4 mg [ondansetron HCl 2 mg/mL intravenous solution (2 mL)] Route: dsf IVP; Site: left antecubital; Signatures: Dispatcher [employer] EDMS Carina Brasher RN RN kcs Sharonda Kam, Reg Reg gb Ethan Contreras, Reg Reg lg Taylor Agrawal RN RN dsf [place]iski, Colin, GISELLE PAEric cc10 Ami Donnelly PA-C PAEric dt4 The chart was reviewed and I authenticate all verbal orders and agree with the evaluation and treatment provided.Corrections: (The following items were deleted from the chart) 12:00 11:56 LIVER PROFILE+LAB ordered. EDMS EDMS Attachments: 14:00 [facility] Payment Agreement lg 08/03 09:38 T-Sheet-- Draft Copy gb Chart Complete MTDD
== END 2016-08-02 13:36 | disposition home or self-care (01) ==
LOC: M ED 10:34
DX: O03.9 Complete or unspecified spontaneous abortion without complication (principal); E66.8 Other obesity; Z68.41 Body mass index [BMI] 40.0-44.9, adult; Z3A.01 Less than 8 weeks gestation of pregnancy
CPT/HCPCS: 76801; 76817; 80048; 80076; 81001; 84702; 85025; 86850; 86900; 86901; 87086; 93976; 96374; 96375; 99284; J2405

== ENCOUNTER 2016-08-04 20:47 | Emergency (ER) | payer OTHER ==
[2016-08-04 23:53] LABS: BASO % 0.4 % (0.0-1.0); EOS # 0.2 K/mm3 (0.0-0.50); EOS % 2.1 % (0.0-3.0); LARGE UNSTAINED CELL # 0.1 K/mm3 (0.0-0.4); LARGE UNSTAINED CELL % 1.6 % (0.0-4.0); LYMPH % 33.7 % (24.0-44.0); MEAN CORPUSCULAR HEMOGLOBIN 29.3 pg (27.0-33.0); MEAN CORPUSCULAR HGB CONC 33.3 g/dl (32.0-36.5); MEAN CORPUSCULAR VOLUME 88.1 fl (80.0-96.0); MONO # 0.3 K/mm3 (0.0-0.8); MONO % 3.2 % (0.0-5.0); NEUTROPHILS # 5.3 K/mm3 (1.8-7.7); PLATELET COUNT, AUTOMATED 290 k/mm3 (150-450); RED CELL DISTRIBUTION WIDTH 12.4 % (11.5-14.5); WHITE BLOOD COUNT 8.9 K/mm3 (4.0-10.0)
--- NOTE | 2016-08-05 01:41 | EDDOCDS ---
Physician Documentation [facility] Name: Divya Dunbar Age: 31 yrs Sex: Female : 1985 Arrival Date: 08/04/2016 Time: 20:47 Bed Triage 2 Private MD: NO PRIMARY PHYSICIAN, . Disposition: 08/05/16 01:28 Discharged to Home/Self Care. Impression: Incomplete spontaneous without complication. - Condition is Stable. - Discharge Instructions: Incomplete Miscarriage, Miscarriage. - Medication Reconciliation, Local Pharmacy Hours form. - Follow up: Perez Araya MD; When: Call to arrange an appointment; Reason: Recheck today's complaints, Continuance of care. - Problem is an ongoing problem. - Symptoms are unchanged. - Notes: return tomorrow at 4pm for repeat Beta-HCG quant andCBC. no eating or drinking as directed by dr araya. return to ER sooner if any other concerns arise. prior HCG levels were 162 on 07/19, 56 on 08/02, and 47 on 08/04. Historical: - Allergies: no known allergies; - Home Meds: 1. Vitamin Oral 1 tab once daily (Last dose: 08/02/2016) 2. hydrocodone-acetaminophen 5-325 mg Oral tab 1 tab every 4 hours for Pain (Last dose: 08/04/2016 19:30) - PMHx: vaginal bleeding; - PSHx: Tubes in ears; - Social history: Smoking status: Patient states was never smoker of tobacco. Patient uses alcohol occasionally. Patient/guardian denies using street drugs, No barriers to communication noted, The patient speaks fluent Yakut, Speaks appropriately for age. - Family history: Not pertinent. - : The pt / caregiver states he / she is not on anticoagulants. Home medication list is obtained from the patient. - Exposure Risk Screening:: None identified. METAL FABRICATOR: 08/04 20:59 LMP 05/2016 ttb Vital Signs: 20:48 BP 115 / 71; Pulse 79; Resp 18; Temp 99.0(O); Pulse Ox 99% on R/A; Weight 91.17 kg / elp 201 lbs; Height 4 ft. 11 in. (149.86 cm); Pain 08/31; 08/05 01:36 BP 128 / 80; Pulse 88; Resp 20; Temp 98.8(O); Pulse Ox 99% on R/A; Pain /10; jmb 08/04 20:48 Body Mass Index 40.60 (91.17 kg, 149.86 cm) elp MDM: 08/04 22:58 Hcg, Serum Quantitative Ordered. EDMS 23:01 CBC with Diff Ordered. EDMS 23:15 Financial registration complete. zo 23:16 [facility] Payment Agreement was scanned into [employer] and attached to record. zo 23:58 CBC with Diff Reviewed. mo1 08/05 00:01 Hcg, Serum Quantitative Reviewed. mo1 00:41 Set up pelvic ordered. mo1 Signatures: Dispatcher [employer] EDMS Anali Damian zo Mery Downey, RN RN ttb Kevin Zavala PA PA mo1 Fernando Black,RN RN jmb The chart was reviewed and I authenticate all verbal orders and agree with the evaluation and treatment provided.Attachments: 08/04 23:16 [facility] Payment Agreement zo MTDD
--- NOTE | 2016-08-05 01:41 | EDDOCDS ---
Nurse's Notes [facility] Name: Divya Dunbar Age: 31 yrs Sex: Female : 1985 Arrival Date: 08/04/2016 Time: 20:47 Bed Triage 2 Private MD: NO PRIMARY PHYSICIAN, . Diagnosis: Incomplete spontaneous without complication Presentation: 08/04 20:56 Presenting complaint: Patient states: here for Beta-HCG recheck. Told on to ttb return for repeat labwork. Some abd bloating, less bleeding, improved pain with prescribed meds. Adult Sepsis Screening: The patient does not have new or worsening altered mentation. Patient's respiratory rate is less than 22. Systolic blood pressure is greater than 100. Patient has a qSOFA score of 0- Negative Sepsis Screen. Suicide/Homicide risk assessment- the patient denies having any suicidal and/or homicidal ideations and does not present with any other emotional, behavioral or mental health complaints. 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 Transition of care: patient was not received from another setting of care. 20:56 Acuity: KASSI Level 3 ttb 20:56 Method Of Arrival: Walkin/Carried/Asstd ttb Triage Assessment: 20:59 General: Appears in no apparent distress, well nourished, well groomed, Behavior is ttb appropriate for age, cooperative, pleasant. Pain: Location: lower abd 2/10. HIV screening NA for this visit Offered previously. Neurological: Level of Consciousness is awake, alert, Oriented to person, place, time. Neurological: Denies dizziness, headache. Cardiovascular: Chest pain is denied. Respiratory: No deficits noted. Airway is patent Respiratory effort is even, unlabored, Denies cough, shortness of breath. GI: Reports lower abdominal pain, Denies nausea, vomiting. : Reports vaginal bleeding that is bright red. Derm: Skin is normal. Injury Description: No known injury. 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 Vitamin Oral 1 tab once daily (Last dose: 08/02/2016) 2. hydrocodone-acetaminophen 5-325 mg Oral tab 1 tab every 4 hours for Pain (Last dose: 08/04/2016 19:30) - PMHx: vaginal bleeding; - PSHx: Tubes in ears; - Social history: Smoking status: Patient states was never smoker of tobacco. Patient uses alcohol occasionally. Patient/guardian denies using street drugs, No barriers to communication noted, The patient speaks fluent Chinese, Speaks appropriately for age. - Family history: Not pertinent. - : The pt / caregiver states he / she is not on anticoagulants. Home medication list is obtained from the patient. - Exposure Risk Screening:: None identified. Screenin/15 01:36 Screening information is obtained from the patient. Fall risk: No risks identified. jmb Assistance ADL's: requires no assistance with activities of daily living. Abuse/DV Screen: The patient / caregiver reports he/she is: not in a situation that causes fear, pain or injury. Nutritional screening: No deficits noted. Advance Directives: Currently, there is no health care proxy. There is no active DNR order. There is no living will. There is no Power of Survey Analyst. home support is adequate. Assessment: 01:36 General: Patient instructed on discharge instructions. Patient asked if there were any b questions regarding discharge, patient stated no. Patient signed discharge instructions. Patient discharged in stable condition.. Vital Signs: 08/04 20:48 BP 115 / 71; Pulse 79; Resp 18; Temp 99.0(O); Pulse Ox 99% on R/A; Weight 91.17 kg; elp Height 4 ft. 11 in. (149.86 cm); Pain 2/10; 08/05 01:36 BP 128 / 80; Pulse 88; Resp 20; Temp 98.8(O); Pulse Ox 99% on R/A; Pain 2/10; jmb 08/04 20:48 Body Mass Index 40.60 (91.17 kg, 149.86 cm) [facility] Vitals: 08/04 20:48 Log In Time: August 04, 2016 at 20:46. [facility] ED Course: 20:47 Patient visited by Denisse Garrison PCA. elp 20:47 Patient moved to Waiting elp 20:48 NO PRIMARY PHYSICIAN, . is Private Physician. elp 20:49 Patient visited by Denisse Garrison PCA. elp 20:49 Patient moved to Pre RCE elp 20:58 Triage Initiated ttb 21:40 Patient moved to Triage 1 jmb 22:14 [facility] mo1 22:14 Asif Virk DO is Attending Physician. mo1 22:57 Patient visited by Kevin Zavala PA. mo1 23:12 Patient visited by Kevin Zavala PA. mo1 23:16 [facility] Payment Agreement was scanned into [employer] and attached to record. zo 23:29 CBC with Diff Sent. ajs 23:29 Hcg, Serum Quantitative Sent. ajs 23:32 Patient moved to TR1 jmb 08/05 00:06 Patient moved to PR2 / 26 jmb 00:07 Patient moved to Triage 2 jmb 01:28 Perez Arambula MD is Referral Physician. mo1 01:36 The patient / caregiver is instructed regarding the plan of care and ED course. jmb 01:36 No IV's were initiated during this patient's visit. No procedures done that require jmb assistance. Order Results: Lab Order: Hcg, Serum Quantitative; SPEC'M 08/04/16 23:27 Test: HCG, SERUM QUANTITATIVE; Value: 47; Units: MIU/ML; Status: F Test Note: ; GESTATIONAL AGE APPROXIMATE HCG RANGE (MIU/ML) 0.2-1 WEEK 5-50 1-2 WEEKS 50-500 2-3 WEEKS 100-5,000 3-4 WEEKS 500-10,000 4-5 WEEKS 1,000-50,000 5-6 WEEKS 10,000-100,000 6-8 WEEKS 15,000-200,000 2-3 MONTHS 10,000-100,000 NON FEMALES LESS THAN 3.0 Patient samples may contain human heterophilic antibodies that could react with immunoassays to give falsely elevated or depressed results. This assay has been designed to minimize interference from heterophilic antibodies. Elevated hCG levels have also been associated with trophoblastic disease and nontrophoblastic neoplasms. The possibility of having these diseases should be considered before a diagnosis of is made. This test is not intended for use as a surrogate marker for aiding in the diagnosis or monitoring the treatment of cancer patients. [employer] methodology. Lab Order: CBC with Diff; SPEC'M 08/04/16 23:27 Test: WHITE BLOOD COUNT; Value: 8.9; Range: 4.0-10.0; Units: K/mm3; Status: F Test: RED BLOOD COUNT; Value: 4.15; Range: 4.00-5.40; Units: M/mm3; Status: F Test: HEMOGLOBIN; Value: 12.2; Range: 12.0-16.0; Units: g/dl; Status: F Test: HEMATOCRIT; Value: 36.5; Range: 36.0-47.0; Units: %; Status: F Test: MEAN CORPUSCULAR VOLUME; Value: 88.1; Range: 80.0-96.0; Units: fl; Status: F Test: MEAN CORPUSCULAR HEMOGLOBIN; Value: 29.3; Range: 27.0-33.0; Units: pg; Status: F Test: MEAN CORPUSCULAR HGB CONC; Value: 33.3; Range: 32.0-36.5; Units: g/dl; Status: F Test: RED CELL DISTRIBUTION WIDTH; Value: 12.4; Range: 11.5-14.5; Units: %; Status: F Test: PLATELET COUNT, AUTOMATED; Value: 290; Range: 150-450; Units: k/mm3; Status: F Test: NEUTROPHILS %; Value: 59.0; Range: 36.0-66.0; Units: %; Status: F Test: LYMPH %; Value: 33.7; Range: 24.0-44.0; Units: %; Status: F Test: MONO %; Value: 3.2; Range: 0.0-5.0; Units: %; Status: F Test: EOS %; Value: 2.1; Range: 0.0-3.0; Units: %; Status: F Test: BASO %; Value: 0.4; Range: 0.0-1.0; Units: %; Status: F Test: LARGE UNSTAINED CELL %; Value: 1.6; Range: 0.0-4.0; Units: %; Status: F Test: NEUTROPHILS #; Value: 5.3; Range: 1.8-7.7; Units: K/mm3; Status: F Test: LYMPH #; Value: 3.0; Range: 1.5-4.5; Units: K/mm3; Status: F Test: MONO #; Value: 0.3; Range: 0.0-0.8; Units: K/mm3; Status: F Test: EOS #; Value: 0.2; Range: 0.0-0.50; Units: K/mm3; Status: F Test: BASO #; Value: 0.0; Range: 0.0-0.2; Units: K/mm3; Status: F Test: LARGE UNSTAINED CELL #; Value: 0.1; Range: 0.0-0.4; Units: K/mm3; Status: F Outcome: 01:28 Discharge ordered by Provider. mo1 01:36 Discharge Assessment: Patient awake, alert and oriented x 3. No cognitive and/or jmb functional deficits noted. Patient verbalized understanding of disposition instructions. Patient awake and alert. obeys commands, Oriented to person, place and time. Patient verbalized understanding of disposition instructions. Patient has no functional deficits. patient administered narcotics - no. The following High Risk Discharge criteria are identified: None. Discharged to home ambulatory, with significant other. Condition: stable. Discharge instructions given to patient, Instructed on discharge instructions, follow up and referral plans. Demonstrated understanding of instructions, Pt was receptive of discharge instructions/ teaching. No special radiology studies were completed. Property sent home with patient. 01:40 Patient left the ED. harpal Signatures: Anali Damian Amanda ajs Conner, Teresa, RN RN Kevin Arevalo PA PA mo1 Denisse Garrison, SANTANA OUTSIDE SALES ACCOUNT EXECUTIVE Fernando Samuels RN RN harpal MTDD
--- NOTE | 2016-08-05 09:07 | HPE ---
DATE OF ADMISSION: 08/04/2016 A 31-year-old 1 female, uncertain last menstrual period (LMP) with irregular bleeding for the last 6 weeks as well as intermittent sharp right lower quadrant pain. She has had multiple visits to the emergency room for early of uncertain location. Her bleeding has been light and is starting to decrease. Her HCG levels have changed from 146 to 56 to 47 over an extended time. Ultrasound shows a right-sided complex mass as well as a moderate amount of free fluid in the pelvis. MEDICAL HISTORY: Noncontributory. SURGICAL HISTORY: 1. Tympanotomy tubes. 2. Tonsillectomy. ALLERGIES: No known drug allergies. SOCIAL HISTORY: The father of the baby is supportive. She lives in [place]. Denies cigarettes, alcohol or drug use. FAMILY HISTORY: Noncontributory. PHYSICAL EXAMINATION: Blood pressure 115/71, pulse 79, temperature 99.0. She is in no apparent distress. Head and neck exam: Normal. Lungs: Clear. Heart: Regular rate and rhythm. Abdomen is moderately tender in the right lower quadrant with no rebounding or guarding present. She has a small amount of blood in the vagina with mild cervical tenderness. No uterine tenderness but she has right adnexal tenderness. Extremities are nontender. ASSESSMENT: A 31-year-old 1 with early failure. Location of the is undetermined. It could represent an early intrauterine failure versus ectopic . PLAN: An endometrial biopsy is performed to assess her location. If the HCG level drops 24 hours after endometrial aspiration, this suggests an intrauterine that has been disrupted. If there is not a significant change in HCG levels, it is more suggestive of ectopic . The patient will return to the emergency room within 24 hours for further HCG evaluations. Options for treatment were discussed, including expectant management, methotrexate, laparoscopic surgery.
[2016-08-05] MEDS ORDERED: MIDAZOLAM INJ 2 MG/2 ML VIAL (J2250) As Ordered ONE (18:20)
[2016-08-05] MEDS ORDERED: HYDR-3713 PO (18:20)
[2016-08-05] MEDS ORDERED: fentaNYL 250 MCG/5 ML INJECTION (J3010) As Ordered ONE (18:21)
[2016-08-05] MEDS ORDERED: LIDOCAINE 2% INJ 100 MG/5 ML SDV (FOR ANES.) As Ordered ONE (18:22)
[2016-08-05] MEDS ORDERED: PROPOFOL 200 MG/20 ML VIAL As Ordered ONE (18:23)
[2016-08-05] MEDS ORDERED: dexameTHASONE 4 MG/ML 1ML VIAL (J1100) As Ordered ONE (19:38)
[2016-08-05] MEDS ORDERED: KETOROLAC 60 MG/2 ML VIAL (J1885) As Ordered ONE (20:08)
[2016-08-06] MEDS ORDERED: PERC5TAB6 PO (08:01)
[2016-08-06] MEDS ORDERED: MOTR200T44 PO (09:14)
--- NOTE | 2016-08-07 02:41 | EDDOCDS ---
Physician Documentation [facility] Name: Divya Dunbar Age: 31 yrs Sex: Female : 1985 Arrival Date: 08/04/2016 Time: 20:47 Bed Triage 2 Private MD: NO PRIMARY PHYSICIAN, . Disposition: 08/05/16 01:28 Discharged to Home/Self Care. Impression: Incomplete spontaneous without complication. - Condition is Stable. - Discharge Instructions: Incomplete Miscarriage, Miscarriage. - Medication Reconciliation, Local Pharmacy Hours form. - Follow up: Perez Araya MD; When: Call to arrange an appointment; Reason: Recheck today's complaints, Continuance of care. - Problem is an ongoing problem. - Symptoms are unchanged. - Notes: return tomorrow at 4pm for repeat Beta-HCG quant andCBC. no eating or drinking as directed by dr araya. return to ER sooner if any other concerns arise. prior HCG levels were 162 on 07/19, 56 on 08/02, and 47 on 08/04. Historical: - Allergies: no known allergies; - Home Meds: 1. Vitamin Oral 1 tab once daily (Last dose: 08/02/2016) 2. hydrocodone-acetaminophen 5-325 mg Oral tab 1 tab every 4 hours for Pain (Last dose: 08/04/2016 19:30) - PMHx: vaginal bleeding; - PSHx: Tubes in ears; - Social history: Smoking status: Patient states was never smoker of tobacco. Patient uses alcohol occasionally. Patient/guardian denies using street drugs, No barriers to communication noted, The patient speaks fluent Occitan, Speaks appropriately for age. - Family history: Not pertinent. - : The pt / caregiver states he / she is not on anticoagulants. Home medication list is obtained from the patient. - Exposure Risk Screening:: None identified. FABRIC STRETCHER: 08/04 20:59 LMP 05/2016 ttb Vital Signs: 20:48 BP 115 / 71; Pulse 79; Resp 18; Temp 99.0(O); Pulse Ox 99% on R/A; Weight 91.17 kg / elp 201 lbs; Height 4 ft. 11 in. (149.86 cm); Pain 08/31; 08/05 01:36 BP 128 / 80; Pulse 88; Resp 20; Temp 98.8(O); Pulse Ox 99% on R/A; Pain 2/10; jmb 08/04 20:48 Body Mass Index 40.60 (91.17 kg, 149.86 cm) elp MDM: 08/04 22:58 Hcg, Serum Quantitative Ordered. EDMS 23:01 CBC with Diff Ordered. EDMS 23: Financial registration complete. zo 23:16 [facility] Payment Agreement was scanned into [employer] and attached to record. zo 23:58 CBC with Diff Reviewed. mo1 08/05 00:01 Hcg, Serum Quantitative Reviewed. mo1 00:41 Set up pelvic ordered. mo1 07:55 T-Sheet-- Draft Copy was scanned into [email or web address] and attached to record. [facility] Signatures: Dispatcher [employer] Anali Ho Teresa, RN RN Kevin Arevalo PA PA mo1 Fernando Black RN RN Donna Robison The chart was reviewed and I authenticate all verbal orders and agree with the evaluation and treatment provided.Attachments: 08/04 23:16 [facility] Payment Agreement zo 08/05 07:55 T-Sheet-- Draft Copy [facility] Chart Complete MTDD
--- NOTE | 2016-08-07 02:41 | EDDOCDS ---
Physician Documentation [facility] Name: Divya Dunbar Age: 31 yrs Sex: Female : 1985 Arrival Date: 08/04/2016 Time: 20:47 Bed Triage 2 Private MD: NO PRIMARY PHYSICIAN, . Disposition: 08/05/16 01:28 Discharged to Home/Self Care. Impression: Incomplete spontaneous without complication. - Condition is Stable. - Discharge Instructions: Incomplete Miscarriage, Miscarriage. - Medication Reconciliation, Local Pharmacy Hours form. - Follow up: Perez Araya MD; When: Call to arrange an appointment; Reason: Recheck today's complaints, Continuance of care. - Problem is an ongoing problem. - Symptoms are unchanged. - Notes: return tomorrow at 4pm for repeat Beta-HCG quant andCBC. no eating or drinking as directed by dr araya. return to ER sooner if any other concerns arise. prior HCG levels were 162 on 07/19, 56 on 08/02, and 47 on 08/04. Historical: - Allergies: no known allergies; - Home Meds: 1. Vitamin Oral 1 tab once daily (Last dose: 08/02/2016) 2. hydrocodone-acetaminophen 5-325 mg Oral tab 1 tab every 4 hours for Pain (Last dose: 08/04/2016 19:30) - PMHx: vaginal bleeding; - PSHx: Tubes in ears; - Social history: Smoking status: Patient states was never smoker of tobacco. Patient uses alcohol occasionally. Patient/guardian denies using street drugs, No barriers to communication noted, The patient speaks fluent Macedonian, Speaks appropriately for age. - Family history: Not pertinent. - : The pt / caregiver states he / she is not on anticoagulants. Home medication list is obtained from the patient. - Exposure Risk Screening:: None identified. 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 11 in. (149.86 cm); Pain 08/31; 08/05 01:36 BP 128 / 80; Pulse 88; Resp 20; Temp 98.8(O); Pulse Ox 99% on R/A; Pain 2/10; jmb 08/04 20:48 Body Mass Index 40.60 (91.17 kg, 149.86 cm) elp MDM: 08/04 22:58 Hcg, Serum Quantitative Ordered. EDMS 23:01 CBC with Diff Ordered. EDMS 23: Financial registration complete. zo 23:16 [facility] Payment Agreement was scanned into [employer] and attached to record. zo 23:58 CBC with Diff Reviewed. mo1 08/05 00:01 Hcg, Serum Quantitative Reviewed. mo1 00:41 Set up pelvic ordered. mo1 07:55 T-Sheet-- Draft Copy was scanned into [employer] [address] and attached to record. [facility] Signatures: Dispatcher [employer] Anali Ho Teresa, RN RN Kevin Arevalo PA PA mo1 Fernando Black RN RN Donna Robison The chart was reviewed and I authenticate all verbal orders and agree with the evaluation and treatment provided.Attachments: 08/04 23:16 COUNT [facility]CLUDES [facility] Payment Agreement zo 08/05 07:55 T-Sheet-- Draft Copy [facility] Chart Complete MTDD
--- NOTE | 2016-08-07 02:41 | EDDOCDS ---
Nurse's Notes [facility] Name: Divya Dunbar Age: 31 yrs Sex: Female : 1985 Arrival Date: 08/04/2016 Time: 20:47 Bed Triage 2 Private MD: NO PRIMARY PHYSICIAN, . Diagnosis: Incomplete spontaneous without complication Presentation: 08/04 20:56 Presenting complaint: Patient states: here for Beta-HCG recheck. Told on to ttb return for repeat labwork. Some abd bloating, less bleeding, improved pain with prescribed meds. Adult Sepsis Screening: The patient does not have new or worsening altered mentation. Patient's respiratory rate is less than 22. Systolic blood pressure is greater than 100. Patient has a qSOFA score of 0- Negative Sepsis Screen. Suicide/Homicide risk assessment- the patient denies having any suicidal and/or homicidal ideations and does not present with any other emotional, behavioral or mental health complaints. 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 Transition of care: patient was not received from another setting of care. 20:56 Acuity: KASSI Level 3 ttb 20:56 Method Of Arrival: Walkin/Carried/Asstd ttb Triage Assessment: 20:59 General: Appears in no apparent distress, well nourished, well groomed, Behavior is ttb appropriate for age, cooperative, pleasant. Pain: Location: lower abd 2/10. HIV screening NA for this visit Offered previously. Neurological: Level of Consciousness is awake, alert, Oriented to person, place, time. Neurological: Denies dizziness, headache. Cardiovascular: Chest pain is denied. Respiratory: No deficits noted. Airway is patent Respiratory effort is even, unlabored, Denies cough, shortness of breath. GI: Reports lower abdominal pain, Denies nausea, vomiting. : Reports vaginal bleeding that is bright red. Derm: Skin is normal. Injury Description: No known injury. 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 Vitamin Oral 1 tab once daily (Last dose: 08/02/2016) 2. hydrocodone-acetaminophen 5-325 mg Oral tab 1 tab every 4 hours for Pain (Last dose: 08/04/2016 19:30) - PMHx: vaginal bleeding; - PSHx: Tubes in ears; - Social history: Smoking status: Patient states was never smoker of tobacco. Patient uses alcohol occasionally. Patient/guardian denies using street drugs, No barriers to communication noted, The patient speaks fluent Sinhala, Speaks appropriately for age. - Family history: Not pertinent. - : The pt / caregiver states he / she is not on anticoagulants. Home medication list is obtained from the patient. - Exposure Risk Screening:: None identified. Screenin/15 01:36 Screening information is obtained from the patient. Fall risk: No risks identified. jmb Assistance ADL's: requires no assistance with activities of daily living. Abuse/DV Screen: The patient / caregiver reports he/she is: not in a situation that causes fear, pain or injury. Nutritional screening: No deficits noted. Advance Directives: Currently, there is no health care proxy. There is no active DNR order. There is no living will. There is no Power of Arm Rest Builder. home support is adequate. Assessment: 01:36 General: Patient instructed on discharge instructions. Patient asked if there were any b questions regarding discharge, patient stated no. Patient signed discharge instructions. Patient discharged in stable condition.. Vital Signs: 08/04 20:48 BP 115 / 71; Pulse 79; Resp 18; Temp 99.0(O); Pulse Ox 99% on R/A; Weight 91.17 kg; elp Height 4 ft. 11 in. (149.86 cm); Pain 2/10; 08/05 01:36 BP 128 / 80; Pulse 88; Resp 20; Temp 98.8(O); Pulse Ox 99% on R/A; Pain 2/10; jmb 08/04 20:48 Body Mass Index 40.60 (91.17 kg, 149.86 cm) [facility] Vitals: 08/04 20:48 Log In Time: August 04, 2016 at 20:46. [facility] ED Course: 20:47 Patient visited by Denisse Garrison PCA. elp 20:47 Patient moved to Waiting elp 20:48 NO PRIMARY PHYSICIAN, . is Private Physician. elp 20:49 Patient visited by Denisse Garrison PCA. elp 20:49 Patient moved to Pre RCE elp 20:58 Triage Initiated ttb 21:40 Patient moved to Triage 1 jmb 22:14 [facility] mo1 22:14 Asif Virk DO is Attending Physician. mo1 22:57 Patient visited by Kevin Zavala PA. mo1 23:12 Patient visited by Kevin Zavala PA. mo1 23:16 [facility] Payment Agreement was scanned into [email or web address] and attached to record. zo 23:29 CBC with Diff Sent. ajs 23:29 Hcg, Serum Quantitative Sent. ajs 23:32 Patient moved to TR1 jmb 08/05 00:06 Patient moved to PR2 / 26 jmb 00:07 Patient moved to Triage 2 jmb 01:28 Perez Arambula MD is Referral Physician. mo1 01:36 The patient / caregiver is instructed regarding the plan of care and ED course. jmb 01:36 No IV's were initiated during this patient's visit. No procedures done that require jmb assistance. 07:55 T-Sheet-- Draft Copy was scanned into [email or web address] and attached to record. [facility] Order Results: Lab Order: Hcg, Serum Quantitative; SPEC'M 08/04/16 23:27 Test: HCG, SERUM QUANTITATIVE; Value: 47; Units: MIU/ML; Status: F Test Note: ; GESTATIONAL AGE APPROXIMATE HCG RANGE (MIU/ML) 0.2-1 WEEK 5-50 1-2 WEEKS 50-500 2-3 WEEKS 100-5,000 3-4 WEEKS 500-10,000 4-5 WEEKS 1,000-50,000 5-6 WEEKS 10,000-100,000 6-8 WEEKS 15,000-200,000 2-3 MONTHS 10,000-100,000 NON FEMALES LESS THAN 3.0 Patient samples may contain human heterophilic antibodies that could react with immunoassays to give falsely elevated or depressed results. This assay has been designed to minimize interference from heterophilic antibodies. Elevated hCG levels have also been associated with trophoblastic disease and nontrophoblastic neoplasms. The possibility of having these diseases should be considered before a diagnosis of is made. This test is not intended for use as a surrogate marker for aiding in the diagnosis or monitoring the treatment of cancer patients. [employer] methodology. Lab Order: CBC with Diff; SPEC'M 08/04/16 23:27 Test: WHITE BLOOD COUNT; Value: 8.9; Range: 4.0-10.0; Units: K/mm3; Status: F Test: RED BLOOD COUNT; Value: 4.15; Range: 4.00-5.40; Units: M/mm3; Status: F Test: HEMOGLOBIN; Value: 12.2; Range: 12.0-16.0; Units: g/dl; Status: F Test: HEMATOCRIT; Value: 36.5; Range: 36.0-47.0; Units: %; Status: F Test: MEAN CORPUSCULAR VOLUME; Value: 88.1; Range: 80.0-96.0; Units: fl; Status: F Test: MEAN CORPUSCULAR HEMOGLOBIN; Value: 29.3; Range: 27.0-33.0; Units: pg; Status: F Test: MEAN CORPUSCULAR HGB CONC; Value: 33.3; Range: 32.0-36.5; Units: g/dl; Status: F Test: RED CELL DISTRIBUTION WIDTH; Value: 12.4; Range: 11.5-14.5; Units: %; Status: F Test: PLATELET COUNT, AUTOMATED; Value: 290; Range: 150-450; Units: k/mm3; Status: F Test: NEUTROPHILS %; Value: 59.0; Range: 36.0-66.0; Units: %; Status: F Test: LYMPH %; Value: 33.7; Range: 24.0-44.0; Units: %; Status: F Test: MONO %; Value: 3.2; Range: 0.0-5.0; Units: %; Status: F Test: EOS %; Value: 2.1; Range: 0.0-3.0; Units: %; Status: F Test: BASO %; Value: 0.4; Range: 0.0-1.0; Units: %; Status: F Test: LARGE UNSTAINED CELL %; Value: 1.6; Range: 0.0-4.0; Units: %; Status: F Test: NEUTROPHILS #; Value: 5.3; Range: 1.8-7.7; Units: K/mm3; Status: F Test: LYMPH #; Value: 3.0; Range: 1.5-4.5; Units: K/mm3; Status: F Test: MONO #; Value: 0.3; Range: 0.0-0.8; Units: K/mm3; Status: F Test: EOS #; Value: 0.2; Range: 0.0-0.50; Units: K/mm3; Status: F Test: BASO #; Value: 0.0; Range: 0.0-0.2; Units: K/mm3; Status: F Test: LARGE UNSTAINED CELL #; Value: 0.1; Range: 0.0-0.4; Units: K/mm3; Status: F Outcome: 01:28 Discharge ordered by Provider. mo1 01:36 Discharge Assessment: Patient awake, alert and oriented x 3. No cognitive and/or jmb functional deficits noted. Patient verbalized understanding of disposition instructions. Patient awake and alert. obeys commands, Oriented to person, place and time. Patient verbalized understanding of disposition instructions. Patient has no functional deficits. patient administered narcotics - no. The following High Risk Discharge criteria are identified: None. Discharged to home ambulatory, with significant other. Condition: stable. Discharge instructions given to patient, Instructed on discharge instructions, follow up and referral plans. Demonstrated understanding of instructions, Pt was receptive of discharge instructions/ teaching. No special radiology studies were completed. Property sent home with patient. 01:40 Patient left the ED. [facility] Signatures: Anali Damian Amanda ajs Conner, Teresa, RN RN Kevin Arevalo PA PA mo1 Denisse Garrison, SANTANA DIRECTOR OF INDUSTRIAL RELATIONS Fernando Samuels RN RN Donna Robison Chart Complete MTDD
== END 2016-08-05 01:40 | disposition home or self-care (01) ==
LOC: M ED 20:47
DX: O03.4 Incomplete spontaneous abortion without complication (principal); R10.2 Pelvic and perineal pain; Z79.899 Other long term (current) drug therapy
CPT/HCPCS: 36415; 84702; 85025; 99283; J1100; J1885; J2250; J3010

== ENCOUNTER 2016-08-05 16:11 | Day surgery (SDC) | payer OTHER ==
[~2016-08-05] VITALS: Ht 149.9 cm; Wt 91.2 kg
[2016-08-05 16:38] LABS: BASO % 0.3 % (0.0-1.0); EOS # 0.2 K/mm3 (0.0-0.50); EOS % 1.9 % (0.0-3.0); LARGE UNSTAINED CELL # 0.1 K/mm3 (0.0-0.4); LYMPH # 2.2 K/mm3 (1.5-4.5); LYMPH % 23.4 % (24.0-44.0); MEAN CORPUSCULAR HEMOGLOBIN 29.4 pg (27.0-33.0); MEAN CORPUSCULAR HGB CONC 33.4 g/dl (32.0-36.5); MEAN CORPUSCULAR VOLUME 88.2 fl (80.0-96.0); MONO # 0.2 K/mm3 (0.0-0.8); MONO % 2.6 % (0.0-5.0); NEUTROPHILS # 6.6 K/mm3 (1.8-7.7); NEUTROPHILS % 70.8 % (36.0-66.0); PLATELET COUNT, AUTOMATED 301 k/mm3 (150-450); RED CELL DISTRIBUTION WIDTH 12.4 % (11.5-14.5); WHITE BLOOD COUNT 9.4 K/mm3 (4.0-10.0)
[2016-08-05] MEDS ORDERED: HYDR-3713 PO (18:20)
--- NOTE | 2016-08-05 18:45 | EDDOCDS ---
Nurse's Notes [facility] Name: Divya Dunbar Age: 31 yrs Sex: Female : 1985 Arrival Date: 08/05/2016 Time: 16:11 Bed I1 / M1 Private MD: NO PRIMARY PHYSICIAN, . Diagnosis: Ectopic ;Pelvic and perineal pain Presentation: 08/05 16:24 Presenting complaint: Patient states: here for repeat blood HCG levels checked. had D & rs3 C yesterday. Adult Sepsis Screening: The patient does not have new or worsening altered mentation. Patient's respiratory rate is less than 22. Systolic blood pressure is greater than 100. Patient has a qSOFA score of 0- Negative Sepsis Screen. Suicide/Homicide risk assessment- the patient denies having any suicidal and/or homicidal ideations and does not present with any other emotional, behavioral or mental health complaints. Status: Patient is not a banking services officer or dependent. Transition of care: patient was not received from another setting of care. 16:24 Acuity: KASSI Level 4 rs3 16:24 Method Of Arrival: Walkin/Carried/Asstd rs3 Triage Assessment: 16:26 General: Appears in no apparent distress. Pain: Denies pain. HIV screening NA for this rs3 visit Offered previously. 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 hydrocodone-acetaminophen 5-325 mg Oral tab 1 tab every 4 hours for Pain 2. Vitamin Oral 1 tab once daily - PMHx: vaginal bleeding; - PSHx: Tubes in ears; - Social history: Smoking status: Patient states was never smoker of tobacco. No barriers to communication noted, The patient speaks fluent Japanese. - Family history: Not pertinent. - : The pt / caregiver states he / she is not on anticoagulants. Home medication list is obtained from the patient. - Exposure Risk Screening:: None identified. Screenin:37 Screening information is obtained from the patient. Fall risk: No risks identified. hs1 Assistance ADL's: requires no assistance with activities of daily living. Abuse/DV Screen: The patient / caregiver reports he/she is: not in a situation that causes fear, pain or injury. Nutritional screening: No deficits noted. Advance Directives: There is no active DNR order. home support is adequate. Assessment: 17:35 General: Appears in no apparent distress, well developed, well nourished, well groomed, hs1 Behavior is anxious, appropriate for age, cooperative. Pain: Location: pelvis Pain currently is 3 out of 10 on a pain scale. Quality of pain is described as crampy. Neurological: Level of Consciousness is awake, alert, obeys commands. Cardiovascular: No deficits noted. Respiratory: No deficits noted. : Reports vaginal bleeding that is light flow. Derm: Skin is pink, warm & dry. 18:40 Reassessment: Patient appears in no apparent distress at this time. patient aware of hs1 transfer to OR for surgery No other needs noted. . Vital Signs: 16:13 BP 115 / 82; Pulse 97; Resp 18; Temp 98.0; Pulse Ox 99% ; Weight 91.17 kg; Height 4 ft. elp 11 in. (149.86 cm); Pain 3/10; 18:28 BP 164 / 84; Pulse 90; Resp 18; Temp 99.3(TE); Pulse Ox 100% ; Pain 3/10; jrd 16:13 Body Mass Index 40.60 (91.17 kg, 149.86 cm) [facility] Vitals: 16:13 Log In Time: August 05, 2016 at 16:11. [facility] ED Course: 16:12 Patient visited by Denisse Garrison PCA. elp 16:12 NO PRIMARY PHYSICIAN, . is Private Physician. elp 16:12 Patient moved to Waiting elp 16:13 Patient visited by Denisse Garrison PCA. elp 16:13 Patient moved to Pre RCE elp 16:18 Kevin Zavala PA is PHCP. mo1 16:18 Calos Bautista MD is Attending Physician. mo1 16:25 Patient moved to PR1 / 25 jo3 16:26 Triage Initiated rs3 16:30 Patient moved to TR1 ar3 16:31 Hcg, Serum Quantitative Sent. ar3 16:31 CBC with Diff Sent. ar3 17:02 Patient name changed from Divya\S\R\S\Dunbar\S\ to Divya\S\Alicia\S\Dunbar. EDMS 17:02 [facility] Payment Agreement was scanned into [employer] and attached to record. kf3 17:10 Patient moved to I1 / M1 ar3 17:16 Patient visited by Lola Luna RN. hs1 17:21 Patient visited by Kevin Zavala PA. mo1 17:58 Perez Arambula MD is Hospitalizing Provider. mo1 18:14 Admission Orders was scanned into [employer] and attached to record. jrd 18:14 Consents was scanned into [employer] and attached to record. jrd 18:29 Patient visited by Mayank Mayen PCA. jrd 18:38 Inserted saline lock: 20 gauge in right forearm The patient tolerated the procedure hs1 well. No procedures done that require assistance. 18:40 The patient / caregiver is instructed regarding the plan of care and ED course. hs1 Administered Medications: 18:30 Not Given (Other Intervention Used; otherr): NS 0.9% 1000 ml IV at 100 mL/hr continuous hs1 Attachments: 18:14 Consents jrd Order Results: Lab Order: CBC with Diff; SPEC'M 08/05/16 16:30 Test: WHITE BLOOD COUNT; Value: 9.4; Range: 4.0-10.0; Units: K/mm3; Status: F Test: RED BLOOD COUNT; Value: 4.39; Range: 4.00-5.40; Units: M/mm3; Status: F Test: HEMOGLOBIN; Value: 12.9; Range: 12.0-16.0; Units: g/dl; Status: F Test: HEMATOCRIT; Value: 38.7; Range: 36.0-47.0; Units: %; Status: F Test: MEAN CORPUSCULAR VOLUME; Value: 88.2; Range: 80.0-96.0; Units: fl; Status: F Test: MEAN CORPUSCULAR HEMOGLOBIN; Value: 29.4; Range: 27.0-33.0; Units: pg; Status: F Test: MEAN CORPUSCULAR HGB CONC; Value: 33.4; Range: 32.0-36.5; Units: g/dl; Status: F Test: RED CELL DISTRIBUTION WIDTH; Value: 12.4; Range: 11.5-14.5; Units: %; Status: F Test: PLATELET COUNT, AUTOMATED; Value: 301; Range: 150-450; Units: k/mm3; Status: F Test: NEUTROPHILS %; Value: 70.8; Range: 36.0-66.0; Abnormal: Above high normal; Units: %; Status: F Test: LYMPH %; Value: 23.4; Range: 24.0-44.0; Abnormal: Below low normal; Units: %; Status: F Test: MONO %; Value: 2.6; Range: 0.0-5.0; Units: %; Status: F Test: EOS %; Value: 1.9; Range: 0.0-3.0; Units: %; Status: F Test: BASO %; Value: 0.3; Range: 0.0-1.0; Units: %; Status: F Test: LARGE UNSTAINED CELL %; Value: 1.0; Range: 0.0-4.0; Units: %; Status: F Test: NEUTROPHILS #; Value: 6.6; Range: 1.8-7.7; Units: K/mm3; Status: F Test: LYMPH #; Value: 2.2; Range: 1.5-4.5; Units: K/mm3; Status: F Test: MONO #; Value: 0.2; Range: 0.0-0.8; Units: K/mm3; Status: F Test: EOS #; Value: 0.2; Range: 0.0-0.50; Units: K/mm3; Status: F Test: BASO #; Value: 0.0; Range: 0.0-0.2; Units: K/mm3; Status: F Test: LARGE UNSTAINED CELL #; Value: 0.1; Range: 0.0-0.4; Units: K/mm3; Status: F Lab Order: Hcg, Serum Quantitative; SPEC'M 08/05/16 16:30 Test: HCG, SERUM QUANTITATIVE; Value: 52; Units: MIU/ML; Status: F Test Note: ; GESTATIONAL AGE APPROXIMATE HCG RANGE (MIU/ML) 0.2-1 WEEK 5-50 1-2 WEEKS 50-500 2-3 WEEKS 100-5,000 3-4 WEEKS 500-10,000 4-5 WEEKS 1,000-50,000 5-6 WEEKS 10,000-100,000 6-8 WEEKS 15,000-200,000 2-3 MONTHS 10,000-100,000 NON FEMALES LESS THAN 3.0 Patient samples may contain human heterophilic antibodies that could react with immunoassays to give falsely elevated or depressed results. This assay has been designed to minimize interference from heterophilic antibodies. Elevated hCG levels have also been associated with trophoblastic disease and nontrophoblastic neoplasms. The possibility of having these diseases should be considered before a diagnosis of is made. This test is not intended for use as a surrogate marker for aiding in the diagnosis or monitoring the treatment of cancer patients. [employer] methodology. Outcome: 17:58 Decision to Hospitalize by Provider. mo1 18:38 Discharge Assessment: Patient awake, alert and oriented x 3. No cognitive and/or hs1 functional deficits noted. Patient verbalized understanding of disposition instructions. patient administered narcotics - no. The following High Risk Discharge criteria are identified: Yes, ectopic for OR removal. RTS paperwork started. . Admitted to OR accompanied by nurse, accompanied by tech, family with patient, via stretcher, with chart. Condition: stable. No special radiology studies were completed. Property :Personal belongings accompany Pt. 18:44 Patient left the ED. hs1 Signatures: Dispatcher [employer] EDMS Tiara OrtegaRN RN jo3 Angel Madrigal, Reg Reg kf3 Danii Rocha RN RN rs3 Ana Rosa Griffith, NAPHTHOL SOAPING MACHINE OPERATOR NAPHTHOL SOAPING MACHINE OPERATOR ar3 Lola Luna RN RN hs1 Kevin Zavala PA PA mo1 Denisse Garrison, NAPHTHOL SOAPING MACHINE OPERATOR NAPHTHOL SOAPING MACHINE OPERATOR elp Mayank Mayen, NAPHTHOL SOAPING MACHINE OPERATOR NAPHTHOL SOAPING MACHINE OPERATOR jrd MTDD
--- NOTE | 2016-08-05 18:45 | EDDOCDS ---
Physician Documentation [facility] Name: Divya Dunbar Age: 31 yrs Sex: Female : 1985 Arrival Date: 08/05/2016 Time: 16:11 Bed I1 / M1 Private MD: NO PRIMARY PHYSICIAN, . Disposition: 08/05/16 17:58 Hospitalization ordered by Perez Arambula for Inpatient Admission. Preliminary diagnosis are Ectopic , Pelvic and perineal pain. - Bed requested for Admit. - Status is Inpatient Admission. hs1 - Condition is Stable. - Problem is new. - Symptoms are unchanged. Historical: - Allergies: no known allergies; - Home Meds: 1. hydrocodone-acetaminophen 5-325 mg Oral tab 1 tab every 4 hours for Pain 2. Vitamin Oral 1 tab once daily - PMHx: vaginal bleeding; - PSHx: Tubes in ears; - Social history: Smoking status: Patient states was never smoker of tobacco. No barriers to communication noted, The patient speaks fluent Danish. - Family history: Not pertinent. - : The pt / caregiver states he / she is not on anticoagulants. Home medication list is obtained from the patient. - Exposure Risk Screening:: None identified. 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 11 in. (149.86 cm); Pain 3/10; 18:28 BP 164 / 84; Pulse 90; Resp 18; Temp 99.3(TE); Pulse Ox 100% ; Pain 3/10; jrd 16:13 Body Mass Index 40.60 (91.17 kg, 149.86 cm) elp MDM: 16:19 CBC with Diff Ordered. EDMS 16:19 Hcg, Serum Quantitative Ordered. EDMS 16:20 NOTHING BY MOUTH+DIET ordered. EDMS 16:54 CBC with Diff Reviewed. mo1 17:02 [facility] Payment Agreement was scanned into [employer] and attached to record. kf3 17:09 Hcg, Serum Quantitative Reviewed. mo1 17:24 Financial registration complete. kf3 17:57 IV Saline Lock ordered. mo1 17:57 NS 0.9% 1000 ml IV at 100 mL/hr continuous ordered. mo1 17:58 BED REQUEST+ADM ordered. EDMS 18:14 Admission Orders was scanned into [employer] and attached to record. jrd 18:14 Consents was scanned into [employer] and attached to record. jrd Administered Medications: 18:30 Not Given (Other Intervention Used; otherr): NS 0.9% 1000 ml IV at 100 mL/hr continuous hs1 Signatures: Dispatcher [employer] EDMD Angel Madrigal, Reg Reg kf3 Danii RochaRN RN rs3 Lola Luna RN RN hs1 Kevin Zavala, PA PA mo1 Mayank Mayen, SANTANA RISK ASSESSMENT CONSULTANT jrd The chart was reviewed and I authenticate all verbal orders and agree with the evaluation and treatment provided.Corrections: (The following items were deleted from the chart) 17:22 17:17 BED REQUEST+ADM ordered. EDMD EDMS Attachments: 17:02 [facility] Payment Agreement kf3 18:14 Admission Orders jrd MTDD
[2016-08-05] MEDS ORDERED: BUPIVACAINE HCL 0.25% 30 ML VIAL As Ordered ONE (18:54)
[2016-08-05] MEDS ORDERED: BUPIVACAINE HCL 0.25% 30 ML VIAL XX ONE (19:43)
[2016-08-05] MEDS ORDERED: HYDROmorphone HCL 1 MG/ML SYRINGE (J1170) As Ordered ONE (20:15)
[2016-08-05] MEDS ORDERED: fentaNYL 100 MCG/2 ML INJECTION (J3010) IV PRN (20:30)
[2016-08-05] MEDS ORDERED: LR 1,000 ML IV SCH (20:30)
[2016-08-05] MEDS ORDERED: PERCOCET 5MG/325MG TAB PO PRN ×2 (20:30→21:30)
[2016-08-05] MEDS ORDERED: ONDANSETRON 4MG/2ML VIAL (J2405) IV PRN ×2 (20:30→21:30)
[2016-08-05 21:15] VITALS: BP 134/77
[2016-08-05] MEDS ORDERED: IBUPROFEN 800 MG TAB PO PRN (21:30)
[2016-08-05] MEDS: LR 1,000 ML IV SCH (21:30)
[2016-08-05] MEDS ORDERED: MORPHINE 4 MG/ML 1ML SYRINGE IV PRN (21:30)
[2016-08-05 23:24] VITALS: BP 137/76
[2016-08-06] VITALS (7 sets, daily range): BP systolic 117–131; BP diastolic 58–67
[2016-08-06] MEDS: PERCOCET 5MG/325MG TAB PO PRN ×3 (00:06→12:54)
[2016-08-06] MEDS: LR 1,000 ML IV SCH (05:17)
[2016-08-06] MEDS ORDERED: PERC5TAB6 PO (08:01)
[2016-08-06] MEDS ORDERED: MOTR200T44 PO (09:14)
--- NOTE | 2016-08-07 11:40 | RO ---
DATE OF PROCEDURE: 08/05/2016 PREOPERATIVE DIAGNOSIS: Right fallopian tube . POSTOPERATIVE DIAGNOSIS: Right fallopian tube . PROCEDURE: Laparoscopic right salpingostomy. SURGEON: Dr. Perez Arambula ROAD CLEANER: ANESTHESIA: General endotracheal. ESTIMATED BLOOD LOSS: 100 mL. FINDINGS: 2 cm ectopic in the ampullary portion of the right fallopian tube. There was hemorrhage emanating from the fimbriated end of the tube. There were adhesions of the tube to the right ovary. There was a normal appearing left ovary and fallopian tube. Normal uterus. Approximately 100 mL of blood in the posterior cul-de-sac. Omental adhesions to the left pelvic side wall. OPERATIVE SUMMARY: Patient taken to the operating room where general endotracheal anesthesia was induced. She was prepped and draped in the sterile fashion in the dorsal lithotomy position. Dyson catheter was placed. A Hulka uterine tenaculum was placed. Periumbilical incision was made with a scalpel. Veress needle was placed through this incision while tenting up on the skin of the abdomen. Intra-abdominal location of the Veress needle was assessed with the use of a saline-filled syringe. A pneumoperitoneum was created. An 11 mm trocar was placed through this incision while tenting up on the skin of the abdomen. Two 5 mm suprapubic ports were placed under direct visualization without difficulty. Graspers were used to elevate the affected fallopian tube. Harmonic scalpel was used to make a linear incision on the anterior mesenteric side of the tube. The ectopic was milked out of the tube using the grasping instrument. The ectopic gestation was removed through the 5 mm port. Excess blood clot was evacuated using the suction industrial gas servicer helper. Good hemostasis was noted. Pneumoperitoneum was released. All instruments were removed. Skin was closed with #4-0 Monocryl subcuticular sutures. Sponge, needle, and instruments counts were correct.
--- NOTE | 2016-08-07 19:45 | EDDOCDS ---
Physician Documentation [facility] [place] Name: Divya Dunbar Age: 31 yrs Sex: Female : 1985 Arrival Date: 08/05/2016 Time: 16:11 Bed I1 / M1 Private MD: NO PRIMARY PHYSICIAN, . Disposition: 08/05/16 17:58 Hospitalization ordered by Perez Arambula for Inpatient Admission. Preliminary diagnosis are Ectopic , Pelvic and perineal pain. - Bed requested for Admit. - Status is Inpatient Admission. hs1 - Condition is Stable. - Problem is new. - Symptoms are unchanged. Historical: - Allergies: no known allergies; - Home Meds: 1. hydrocodone-acetaminophen 5-325 mg Oral tab 1 tab every 4 hours for Pain 2. Vitamin Oral 1 tab once daily - PMHx: vaginal bleeding; - PSHx: Tubes in ears; - Social history: Smoking status: Patient states was never smoker of tobacco. No barriers to communication noted, The patient speaks fluent Sinhala. - Family history: Not pertinent. - : The pt / caregiver states he / she is not on anticoagulants. Home medication list is obtained from the patient. - Exposure Risk Screening:: None identified. 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 11 in. (149.86 cm); Pain 3/10; 18:28 BP 164 / 84; Pulse 90; Resp 18; Temp 99.3(TE); Pulse Ox 100% ; Pain 3/10; jrd 16:13 Body Mass Index 40.60 (91.17 kg, 149.86 cm) elp MDM: 16:19 CBC with Diff Ordered. EDMS 16:19 Hcg, Serum Quantitative Ordered. EDMS 16:20 NOTHING BY MOUTH+DIET ordered. EDMS 16:54 CBC with Diff Reviewed. mo1 17:02 [facility] Payment Agreement was scanned into [employer] and attached to record. kf3 17:09 Hcg, Serum Quantitative Reviewed. mo1 17:24 Financial registration complete. kf3 17:57 IV Saline Lock ordered. mo1 17:57 NS 0.9% 1000 ml IV at 100 mL/hr continuous ordered. mo1 17:58 BED REQUEST+ADM ordered. EDMS 18:14 Admission Orders was scanned into [employer] and attached to record. jrd 18:14 Consents was scanned into [employer] and attached to record. jrd 21:05 T-Sheet-- Draft Copy was scanned into MEDHOST and attached to record. klr Administered Medications: 18:30 Not Given (Other Intervention Used; otherr): NS 0.9% 1000 ml IV at 100 mL/hr continuous hs1 Signatures: Dispatcher [employer] EDMS Angel Madrigal, Reg Reg kf3 Danii RochaRN RN rs3 Lola Luna RN RN hs1 Kevin Zavala, PA PA mo1 Mayank Mayen, SANTANA EMPLOYEE SERVICES MANAGER Iris Chaidez kldayna The chart was reviewed and I authenticate all verbal orders and agree with the evaluation and treatment provided.Corrections: (The following items were deleted from the chart) 17:22 17:17 BED REQUEST+ADM ordered. EDDE EDMS Attachments: 17:02 [facility] Payment Agreement kf3 18:14 Admission Orders jrd 21:05 T-Sheet-- Draft Copy klr Chart Complete MTDD
--- NOTE | 2016-08-07 19:45 | EDDOCDS ---
Nurse's Notes [facility] Name: Divya Dunbar Age: 31 yrs Sex: Female : 1985 Arrival Date: 08/05/2016 Time: 16:11 Bed I1 / M1 Private MD: NO PRIMARY PHYSICIAN, . Diagnosis: Ectopic ;Pelvic and perineal pain Presentation: 08/05 16:24 Presenting complaint: Patient states: here for repeat blood HCG levels checked. had D & rs3 C yesterday. Adult Sepsis Screening: The patient does not have new or worsening altered mentation. Patient's respiratory rate is less than 22. Systolic blood pressure is greater than 100. Patient has a qSOFA score of 0- Negative Sepsis Screen. Suicide/Homicide risk assessment- the patient denies having any suicidal and/or homicidal ideations and does not present with any other emotional, behavioral or mental health complaints. 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 Transition of care: patient was not received from another setting of care. 16:24 Acuity: KASSI Level 4 rs3 16:24 Method Of Arrival: Walkin/Carried/Asstd rs3 Triage Assessment: 16:26 General: Appears in no apparent distress. Pain: Denies pain. HIV screening NA for this rs3 visit Offered previously. 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 hydrocodone-acetaminophen 5-325 mg Oral tab 1 tab every 4 hours for Pain 2. Vitamin Oral 1 tab once daily - PMHx: vaginal bleeding; - PSHx: Tubes in ears; - Social history: Smoking status: Patient states was never smoker of tobacco. No barriers to communication noted, The patient speaks fluent Yoruba. - Family history: Not pertinent. - : The pt / caregiver states he / she is not on anticoagulants. Home medication list is obtained from the patient. - Exposure Risk Screening:: None identified. Screenin:37 Screening information is obtained from the patient. Fall risk: No risks identified. hs1 Assistance ADL's: requires no assistance with activities of daily living. Abuse/DV Screen: The patient / caregiver reports he/she is: not in a situation that causes fear, pain or injury. Nutritional screening: No deficits noted. Advance Directives: There is no active DNR order. home support is adequate. Assessment: 17:35 General: Appears in no apparent distress, well developed, well nourished, well groomed, hs1 Behavior is anxious, appropriate for age, cooperative. Pain: Location: pelvis Pain currently is 3 out of 10 on a pain scale. Quality of pain is described as crampy. Neurological: Level of Consciousness is awake, alert, obeys commands. Cardiovascular: No deficits noted. Respiratory: No deficits noted. : Reports vaginal bleeding that is light flow. Derm: Skin is pink, warm & dry. 18:40 Reassessment: Patient appears in no apparent distress at this time. patient aware of hs1 transfer to OR for surgery No other needs noted. . Social Work Consult: 18:39 Social Work Note: PSA was contacted by RN regarding ectopic , pt declines ml4 social work intervention at this time. PSA will remain available if needed. Vital Signs: 16:13 BP 115 / 82; Pulse 97; Resp 18; Temp 98.0; Pulse Ox 99% ; Weight 91.17 kg; Height 4 ft. elp 11 in. (149.86 cm); Pain 3/10; 18:28 BP 164 / 84; Pulse 90; Resp 18; Temp 99.3(TE); Pulse Ox 100% ; Pain 3/10; jrd 16:13 Body Mass Index 40.60 (91.17 kg, 149.86 cm) [facility] Vitals: 16:13 Log In Time: August 05, 2016 at 16:11. [facility] ED Course: 16:12 Patient visited by Denisse Garrison PCA. elp 16:12 NO PRIMARY PHYSICIAN, . is Private Physician. elp 16:12 Patient moved to Waiting elp 16:13 Patient visited by Denisse Garrison PCA. elp 16:13 Patient moved to Pre RCE elp 16:18 Kevin Zavala PA is PHCP. mo1 16:18 Calos Bautista MD is Attending Physician. mo1 16:25 Patient moved to PR1 / 25 jo3 16:26 Triage Initiated rs3 16:30 Patient moved to TR1 ar3 16:31 Hcg, Serum Quantitative Sent. ar3 16:31 CBC with Diff Sent. ar3 17:02 Patient name changed from Divya\S\R\S\Dunbar\S\ to Divya\S\Alicia\S\Manjinder. EDMS 17:02 [facility] Payment Agreement was scanned into [employer] and attached to record. kf3 17:10 Patient moved to I1 / M1 ar3 17:16 Patient visited by Lola Luna RN. hs1 17:21 Patient visited by Kevin Zavala PA. mo1 17:58 Perez Arambula MD is Hospitalizing Provider. mo1 18:14 Admission Orders was scanned into [employer] and attached to record. jrd 18:14 Consents was scanned into [employer] and attached to record. jrd 18:29 Patient visited by Mayank Mayen PCA. jrd 18:38 Inserted saline lock: 20 gauge in right forearm The patient tolerated the procedure hs1 well. No procedures done that require assistance. 18:40 The patient / caregiver is instructed regarding the plan of care and ED course. hs1 21:05 T-Sheet-- Draft Copy was scanned into [employer] and attached to record. klr Administered Medications: 18:30 Not Given (Other Intervention Used; otherr): NS 0.9% 1000 ml IV at 100 mL/hr continuous hs1 Attachments: 18:14 Consents jrd Order Results: Lab Order: CBC with Diff; SPEC'M 08/05/16 16:30 Test: WHITE BLOOD COUNT; Value: 9.4; Range: 4.0-10.0; Units: K/mm3; Status: F Test: RED BLOOD COUNT; Value: 4.39; Range: 4.00-5.40; Units: M/mm3; Status: F Test: HEMOGLOBIN; Value: 12.9; Range: 12.0-16.0; Units: g/dl; Status: F Test: HEMATOCRIT; Value: 38.7; Range: 36.0-47.0; Units: %; Status: F Test: MEAN CORPUSCULAR VOLUME; Value: 88.2; Range: 80.0-96.0; Units: fl; Status: F Test: MEAN CORPUSCULAR HEMOGLOBIN; Value: 29.4; Range: 27.0-33.0; Units: pg; Status: F Test: MEAN CORPUSCULAR HGB CONC; Value: 33.4; Range: 32.0-36.5; Units: g/dl; Status: F Test: RED CELL DISTRIBUTION WIDTH; Value: 12.4; Range: 11.5-14.5; Units: %; Status: F Test: PLATELET COUNT, AUTOMATED; Value: 301; Range: 150-450; Units: k/mm3; Status: F Test: NEUTROPHILS %; Value: 70.8; Range: 36.0-66.0; Abnormal: Above high normal; Units: %; Status: F Test: LYMPH %; Value: 23.4; Range: 24.0-44.0; Abnormal: Below low normal; Units: %; Status: F Test: MONO %; Value: 2.6; Range: 0.0-5.0; Units: %; Status: F Test: EOS %; Value: 1.9; Range: 0.0-3.0; Units: %; Status: F Test: BASO %; Value: 0.3; Range: 0.0-1.0; Units: %; Status: F Test: LARGE UNSTAINED CELL %; Value: 1.0; Range: 0.0-4.0; Units: %; Status: F Test: NEUTROPHILS #; Value: 6.6; Range: 1.8-7.7; Units: K/mm3; Status: F Test: LYMPH #; Value: 2.2; Range: 1.5-4.5; Units: K/mm3; Status: F Test: MONO #; Value: 0.2; Range: 0.0-0.8; Units: K/mm3; Status: F Test: EOS #; Value: 0.2; Range: 0.0-0.50; Units: K/mm3; Status: F Test: BASO #; Value: 0.0; Range: 0.0-0.2; Units: K/mm3; Status: F Test: LARGE UNSTAINED CELL #; Value: 0.1; Range: 0.0-0.4; Units: K/mm3; Status: F Lab Order: Hcg, Serum Quantitative; SPEC'M 08/05/16 16:30 Test: HCG, SERUM QUANTITATIVE; Value: 52; Units: MIU/ML; Status: F Test Note: ; GESTATIONAL AGE APPROXIMATE HCG RANGE (MIU/ML) 0.2-1 WEEK 5-50 1-2 WEEKS 50-500 2-3 WEEKS 100-5,000 3-4 WEEKS 500-10,000 4-5 WEEKS 1,000-50,000 5-6 WEEKS 10,000-100,000 6-8 WEEKS 15,000-200,000 2-3 MONTHS 10,000-100,000 NON FEMALES LESS THAN 3.0 Patient samples may contain human heterophilic antibodies that could react with immunoassays to give falsely elevated or depressed results. This assay has been designed to minimize interference from heterophilic antibodies. Elevated hCG levels have also been associated with trophoblastic disease and nontrophoblastic neoplasms. The possibility of having these diseases should be considered before a diagnosis of is made. This test is not intended for use as a surrogate marker for aiding in the diagnosis or monitoring the treatment of cancer patients. Siemens Endoclear methodology. Outcome: 17:58 Decision to Hospitalize by Provider. mo1 18:38 Discharge Assessment: Patient awake, alert and oriented x 3. No cognitive and/or hs1 functional deficits noted. Patient verbalized understanding of disposition instructions. patient administered narcotics - no. The following High Risk Discharge criteria are identified: Yes, ectopic for OR removal. RTS paperwork started. . Admitted to OR accompanied by nurse, accompanied by tech, family with patient, via stretcher, with chart. Condition: stable. No special radiology studies were completed. Property :Personal belongings accompany Pt. 18:44 Patient left the ED. hs1 Signatures: Dispatcher [employer] EDAR Tiara Ortega,RN RN jo3 Shanna Atkinson, PSA PSA ml4 Angel Madrigal, Reg Reg kf3 Danii Rocha RN RN rs3 Ana Rosa Griffith, CHILD CARE PROVIDER CHILD CARE PROVIDER ar3 Lola Luna RN RN hs1 Kevin Zavala, RHONDA PA mo1 Denisse Garrison, CHILD CARE PROVIDER CHILD CARE PROVIDER Mayank Gutiérrez, CHILD CARE PROVIDER CHILD CARE PROVIDER Iris Chaidez Chart Complete MTDD
--- NOTE | 2016-08-07 19:45 | EDDOCDS ---
Physician Documentation [facility] Name: Divya Dunbar Age: 31 yrs Sex: Female : 1985 Arrival Date: 08/05/2016 Time: 16:11 Bed I1 / M1 Private MD: NO PRIMARY PHYSICIAN, . Disposition: 08/05/16 17:58 Hospitalization ordered by Perez Arambula for Inpatient Admission. Preliminary diagnosis are Ectopic , Pelvic and perineal pain. - Bed requested for Admit. - Status is Inpatient Admission. hs1 - Condition is Stable. - Problem is new. - Symptoms are unchanged. Historical: - Allergies: no known allergies; - Home Meds: 1. hydrocodone-acetaminophen 5-325 mg Oral tab 1 tab every 4 hours for Pain 2. Vitamin Oral 1 tab once daily - PMHx: vaginal bleeding; - PSHx: Tubes in ears; - Social history: Smoking status: Patient states was never smoker of tobacco. No barriers to communication noted, The patient speaks fluent Slovak. - Family history: Not pertinent. - : The pt / caregiver states he / she is not on anticoagulants. Home medication list is obtained from the patient. - Exposure Risk Screening:: None identified. 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 11 in. (149.86 cm); Pain 3/10; 18:28 BP 164 / 84; Pulse 90; Resp 18; Temp 99.3(TE); Pulse Ox 100% ; Pain 3/10; jrd 16:13 Body Mass Index 40.60 (91.17 kg, 149.86 cm) elp MDM: 16:19 CBC with Diff Ordered. EDMS 16:19 Hcg, Serum Quantitative Ordered. EDMS 16:20 NOTHING BY MOUTH+DIET ordered. EDMS 16:54 CBC with Diff Reviewed. mo1 17:02 [facility] Payment Agreement was scanned into [employer] and attached to record. kf3 17:09 Hcg, Serum Quantitative Reviewed. mo1 17:24 Financial registration complete. kf3 17:57 IV Saline Lock ordered. mo1 17:57 NS 0.9% 1000 ml IV at 100 mL/hr continuous ordered. mo1 17:58 BED REQUEST+ADM ordered. EDMS 18:14 Admission Orders was scanned into [employer] and attached to record. jrd 18:14 Consents was scanned into [employer] and attached to record. jrd 21:05 T-Sheet-- Draft Copy was scanned into [employer] and attached to record. klr Administered Medications: 18:30 Not Given (Other Intervention Used; otherr): NS 0.9% 1000 ml IV at 100 mL/hr continuous hs1 Signatures: Dispatcher [employer] EDMS Angel Madrigal, Reg Reg kf3 Danii RochaRN RN rs3 Lola Luna RN RN hs1 Kevin Zavala, PA PA mo1 Mayank Mayen, SANTANA [employer]ADER Iris Chaidez kldayna The chart was reviewed and I authenticate all verbal orders and agree with the evaluation and treatment provided.Corrections: (The following items were deleted from the chart) 17:22 17:17 BED REQUEST+ADM ordered. EDRI EDMS Attachments: 17:02 [facility] Payment Agreement kf3 18:14 Admission Orders jrd 21:05 T-Sheet-- Draft Copy klr Chart Complete MTDD
== END 2016-08-06 13:45 | disposition home or self-care (01) ==
LOC: M ED 16:11 → M SDC 18:40 → M PED 21:15 → M SDC 08-06 13:45
PROVIDERS: ATTEND Specialist
DX: O00.90 Unspecified ectopic pregnancy without intrauterine pregnancy (principal)
CPT/HCPCS: 58673; 84702; 85025; 88305; 96374; 99285; J1170; J2405

== ENCOUNTER → 2016-10-25 | Outpatient (CLI) | payer OTHER ==
[~2016-10-25] MED LIST: HYDR-3713 PO; MOTR200T44 PO; PERC5TAB6 PO
[2016-10-25 12:39] LABS: BASO % 0.2 % (0.0-1.0); EOS # 0.1 K/mm3 (0.0-0.50); EOS % 1.8 % (0.0-3.0); LARGE UNSTAINED CELL # 0.1 K/mm3 (0.0-0.4); LARGE UNSTAINED CELL % 1.4 % (0.0-4.0); LYMPH % 29.6 % (24.0-44.0); MEAN CORPUSCULAR HEMOGLOBIN 28.9 pg (27.0-33.0); MEAN CORPUSCULAR HGB CONC 32.8 g/dl (32.0-36.5); MEAN CORPUSCULAR VOLUME 88.1 fl (80.0-96.0); MONO # 0.2 K/mm3 (0.0-0.8); MONO % 3.6 % (0.0-5.0); NEUTROPHILS % 63.5 % (36.0-66.0); PLATELET COUNT, AUTOMATED 239 k/mm3 (150-450); WHITE BLOOD COUNT 6.4 K/mm3 (4.0-10.0)
[2016-10-25 13:14] LABS: ANION GAP 8 MEQ/L (8-16); BLOOD UREA NITROGEN 8 MG/DL (7-18); CALCIUM LEVEL 8.5 MG/DL (8.5-10.1); CARBON DIOXIDE LEVEL 26 MEQ/L (21-32); CHLORIDE LEVEL 107 MEQ/L (98-107); CREATININE FOR GFR 0.62 MG/DL (0.55-1.02); GLOMERULAR FILTRATION RATE > 60.0 (>60); GLUCOSE, FASTING 77 MG/DL (70-105); SODIUM LEVEL 141 MEQ/L (136-145)
== END ==
LOC: M WUC 09:36
PROVIDERS: ATTEND Physician Assistant
DX: R53.83 Other fatigue (principal)

== ENCOUNTER 2017-03-17 23:00 | Emergency (ER) | payer OTHER ==
[~2017-03-17] VITALS: Ht 149.9 cm; Wt 94.1 kg
[~2017-03-17 23:00] MED LIST changes: +PERC5TAB12 PO; -PERC5TAB6 PO
[2017-03-17] MEDS ORDERED: KETOROLAC 30 MG/ML VIAL (J1885) IV ONE (23:15)
[2017-03-17] MEDS ORDERED: ONDANSETRON 4MG/2ML VIAL (J2405) IV ONE (23:15)
[2017-03-17 23:41] LABS: BASO % 0.3 % (0.0-1.0); EOS # 0.2 K/mm3 (0.0-0.50); EOS % 2.1 % (0.0-3.0); LARGE UNSTAINED CELL # 0.1 K/mm3 (0.0-0.4); LARGE UNSTAINED CELL % 0.7 % (0.0-4.0); LYMPH # 2.7 K/mm3 (1.5-4.5); LYMPH % 26.4 % (24.0-44.0); MEAN CORPUSCULAR HGB CONC 33.7 g/dl (32.0-36.5); MEAN CORPUSCULAR VOLUME 88.9 fl (80.0-96.0); MONO # 0.3 K/mm3 (0.0-0.8); MONO % 3.1 % (0.0-5.0); NEUTROPHILS # 6.8 K/mm3 (1.8-7.7); NEUTROPHILS % 67.4 % (36.0-66.0); PLATELET COUNT, AUTOMATED 263 k/mm3 (150-450); RED CELL DISTRIBUTION WIDTH 12.9 % (11.5-14.5)
[2017-03-18 00:04] LABS: ALBUMIN 3.4 GM/DL (3.2-5.2); ALBUMIN/GLOBULIN RATIO 0.81 (1.00-1.93); ALKALINE PHOSPHATASE 159 U/L (45-117); ALT/SGPT 13 U/L (12-78); ANION GAP 5 MEQ/L (8-16); AST/SGOT 12 U/L (15-37); BILIRUBIN,DIRECT < 0.1 MG/DL (0.0-0.2); BILIRUBIN,TOTAL 0.3 MG/DL (0.2-1.0); BLOOD UREA NITROGEN 12 MG/DL (7-18); CALCIUM LEVEL 8.4 MG/DL (8.5-10.1); CARBON DIOXIDE LEVEL 30 MEQ/L (21-32); CHLORIDE LEVEL 105 MEQ/L (98-107); CREATININE FOR GFR 0.89 MG/DL (0.55-1.02); GLOMERULAR FILTRATION RATE > 60.0 (>60); GLUCOSE, FASTING 103 MG/DL (70-105); POTASSIUM SERUM 3.7 MEQ/L (3.5-5.1); SODIUM LEVEL 140 MEQ/L (136-145); TOTAL PROTEIN 7.6 GM/DL (6.4-8.2)
[2017-03-18] MEDS ORDERED: NAPR500T PO (00:18)
[2017-03-18 00:27] VITALS: BP 105/61
== END 2017-03-18 00:28 | disposition home or self-care (01) ==
LOC: M ED 23:00
DX: R10.32 Left lower quadrant pain (principal); E66.01 Morbid (severe) obesity due to excess calories; R11.0 Nausea
CPT/HCPCS: 80048; 80076; 81001; 81025; 83690; 84702; 85025; 96374; 96375; 99283; J1885; J2405

== ENCOUNTER → 2017-04-10 | Outpatient (CLI) | payer OTHER ==
[~2017-04-10] MED LIST changes: +NAPR500T PO
--- NOTE | 2017-04-10 20:16 | REP ---
PELVIC AND ENDOVAGINAL PROBE ULTRASOUND: 04/10/2017. Clinical history: Ovarian cyst left side. Comparison: 06/29/2016 ultrasound. Findings: Transabdominal and endovaginal probes were utilized. Bladder measures 6.9 x 4.5 by 7.2 cm. Uterus is anteverted. It measures 6.6 x 3.4 x 3.4 cm. Has fairly smooth margins on the EV probe and the central endometrial stripe has a thickness of 3 mm. Slight heterogeneous appearance to the uterus. There is no fluid in the endometrial cavity, but there is some in the endocervical canal, likely from her menses, which began on 04/07. Right ovary 2.9 x 2.5 x 1.5 cm. The left ovary 2.1 x 1.9 x 1 cm. Neither ovary shows solid or cystic mass. Color flow demonstrated in both ovaries and Doppler tracing shows resistive index of 0.59 right and 0.56 left. There is trace fluid in the cul-de-sac, none near the ovaries. Impression: 1. Uterus anteverted, slightly heterogeneous without discrete mass or measurable fibroid, fairly smooth margins. Trace fluid in the endocervical canal, likely from her menses. Endometrial stripe thickness is normal at 3 mm.2. Ovaries show normal color and Doppler flow without mass or cyst. Negative exam. Signed by Romeo Alonzo MD 04/15/2017 01:35 P
== END ==
LOC: M RAD 17:34
PROVIDERS: ATTEND Specialist
DX: N85.4 Malposition of uterus (principal)

== ENCOUNTER → 2017-05-06 | Outpatient (REF) | payer OTHER | LOC: M LAB REF 09:13 → M LABDRWAD 09:13 | PROVIDERS: ATTEND Physician Assistant | DX: Z72.51 High risk heterosexual behavior (principal) ==

== ENCOUNTER → 2017-08-19 | Outpatient (CLI) | payer OTHER ==
[2017-08-19 14:10] LABS: HCG, SERUM QUANTITATIVE < 1.0 MIU/ML
== END ==
LOC: M SMT 09:55
DX: N91.2 Amenorrhea, unspecified (principal)
CPT/HCPCS: 84702

== ENCOUNTER → 2017-11-04 | Outpatient (REF) | payer OTHER ==
[2017-11-04 12:46] LABS: BASO % 0.1 % (0.0-1.0); EOS # 0.2 10^3/uL (0.0-0.50); EOS % 2.5 % (0.0-3.0); HEMATOCRIT 37.7 % (36.0-47.0); HEMOGLOBIN 12.4 g/dl (12.0-15.5); IMMATURE GRANULOCYTE % 0.3 % (0-3.0); LYMPH % 28.1 % (24.0-44.0); MEAN CORPUSCULAR HEMOGLOBIN 28.8 pg (27.0-33.0); MEAN CORPUSCULAR HGB CONC 32.9 g/dl (32.0-36.5); MEAN CORPUSCULAR VOLUME 87.7 fl (80.0-96.0); MONO # 0.3 10^3/uL (0.0-0.8); MONO % 3.8 % (0.0-5.0); NEUTROPHILS # 4.7 10^3/uL (1.8-7.7); NEUTROPHILS % 65.2 % (36.0-66.0); PLATELET COUNT, AUTOMATED 286 10^3/uL (150-450); RED CELL DISTRIBUTION WIDTH 12.8 % (11.5-14.5); WHITE BLOOD COUNT 7.2 10^3/uL (4.0-10.0)
[2017-11-04 13:15] LABS: TOTAL 25(OH) VITAMIN D 14.8 NG/ML (30.0-100.0)
[2017-11-04 13:36] LABS: ALBUMIN 3.5 GM/DL (3.2-5.2); ALBUMIN/GLOBULIN RATIO 0.95 (1.00-1.93); ALKALINE PHOSPHATASE 152 U/L (45-117); ALT/SGPT 11 U/L (12-78); ANION GAP 4 MEQ/L (8-16); AST/SGOT 16 U/L (7-37); BILIRUBIN,TOTAL 0.4 MG/DL (0.2-1.0); BLOOD UREA NITROGEN 9 MG/DL (7-18); CALCIUM LEVEL 8.2 MG/DL (8.5-10.1); CARBON DIOXIDE LEVEL 30 MEQ/L (21-32); CHLORIDE LEVEL 108 MEQ/L (98-107); CHOLESTEROL LEVEL 193 MG/DL (<200); CHOLESTEROL RISK RATIO 3.327 (<5); CREATININE FOR GFR 0.66 MG/DL (0.55-1.30); FREE T4 0.96 NG/DL (0.76-1.46); GLOMERULAR FILTRATION RATE > 60.0 (>60); GLUCOSE, FASTING 87 MG/DL (70-100); HDL CHOLESTEROL 58 MG/DL (>40); LDL CHOLESTEROL 110.6 MG/DL (<100); NON-HDL-C 135 MG/DL; POTASSIUM SERUM 3.8 MEQ/L (3.5-5.1); SODIUM LEVEL 142 MEQ/L (136-145); TOTAL PROTEIN 7.2 GM/DL (6.4-8.2); TRIGLYCERIDES LEVEL 122 MG/DL (<150)
== END ==
LOC: M SFHCADAM 10:26
DX: E66.01 Morbid (severe) obesity due to excess calories (principal); E55.9 Vitamin D deficiency, unspecified; R42 Dizziness and giddiness

== ENCOUNTER → 2017-12-13 | Outpatient (CLI) | payer OTHER | LOC: M RAD 08:10 | DX: J34.2 Deviated nasal septum (principal) ==

== ENCOUNTER 2018-02-19 08:02 | Day surgery (SDC) | payer OTHER ==
[~2018-02-19 08:02] MED LIST changes: -HYDR-3713 PO; +LR 1,000 ML IV; -MOTR200T44 PO; -NAPR500T PO; -PERC5TAB12 PO
[2018-02-19 08:40] LABS: CONTROL LINE UCG INT CTR LINE PRESENT; URINE PREG TEST NEGATIVE (NEGATIVE)
[2018-02-19] MEDS ORDERED: LIDOCAINE 2% INJ 100 MG/5 ML SDV (FOR ANES.) As Ordered ×2 (09:49→13:10)
[2018-02-19] MEDS ORDERED: ROCURONIUM BROMIDE 50 MG/5 ML VIAL As Ordered (09:49)
[2018-02-19] MEDS ORDERED: MIDAZOLAM INJ 2 MG/2 ML VIAL (J2250) As Ordered (09:49)
[2018-02-19] MEDS ORDERED: fentaNYL 250 MCG/5 ML INJECTION (J3010) As Ordered (09:49)
[2018-02-19] MEDS ORDERED: ONDANSETRON 4MG/2ML VIAL (J2405) As Ordered ×4 (09:49→11:07)
[2018-02-19] MEDS ORDERED: dexameTHASONE 4 MG/ML 1ML VIAL (J1100) As Ordered (09:49)
[2018-02-19] MEDS ORDERED: PROPOFOL 200 MG/20 ML VIAL As Ordered (09:49)
[2018-02-19] MEDS ORDERED: PHENYLephrine HCL 500 MCG/5 ML (100MCG/ML) SYRINGE (J2370) As Ordered (09:50)
[2018-02-19] MEDS: METHYLENE BLUE 0.5% (5MG/ML) 10 ML AMP (PROVAYBLUE)(Q9968 PER 1MG) As Ordered (09:51)
[2018-02-19] MEDS ORDERED: SUGAMMADEX SODIUM 500 MG/5 ML VIAL (BRIDION) As Ordered (09:51)
[2018-02-19] MEDS: OXYMETAZOLINE NASAL SPRAY (AFRIN) As Ordered (09:51)
[2018-02-19] MEDS: SODIUM CHLORIDE 0.9% NASAL GEL 15GM (AYR) As Ordered (09:52)
[2018-02-19] MEDS: LIDOCAINE W/EPINEPHRINE 1% 20ML VIAL As Ordered (09:52)
[2018-02-19] MEDS: ONDANSETRON 4MG/2ML VIAL (J2405) IV (11:06)
[2018-02-19] MEDS ORDERED: MEPERIDINE INJ 25 MG/ML VIAL (J2175) IV (11:15)
[2018-02-19] MEDS ORDERED: fentaNYL 100 MCG/2 ML INJECTION (J3010) IV (11:15)
[2018-02-19] MEDS ORDERED: LR 1,000 ML IV (11:15)
[2018-02-19] MEDS: METOCLOPRAMIDE INJ 10MG/2ML VIAL (J2765) IV (11:31)
[2018-02-19] MEDS ORDERED: ACETAMINOPH W/CODEINE #3 TAB UD PO (12:00)
[2018-02-19] MEDS: PERCOCET 5MG/325MG TAB PO (12:02)
[2018-02-19] MEDS ORDERED: GLYCOPYRROLATE INJ 0.2 MG/ML 2 ML VIAL As Ordered (12:09)
[2018-02-19] MEDS ORDERED: LABETALOL HCL 100 MG/20 ML VIAL As Ordered (12:28)
== END 2018-02-19 13:25 | disposition home or self-care (01) ==
LOC: M SDC 08:02
DX: J34.2 Deviated nasal septum (principal); J34.3 Hypertrophy of nasal turbinates; Z79.899 Other long term (current) drug therapy
CPT/HCPCS: 30520

== ENCOUNTER → 2018-05-06 | Outpatient (CLI) | payer OTHER ==
[2018-05-06 19:55] LABS: BASO % 0.4 % (0.0-1.0); EOS # 0.2 10^3/uL (0.0-0.50); EOS % 1.6 % (0.0-3.0); IMMATURE GRANULOCYTE % 0.4 % (0-3.0); LYMPH % 29.3 % (24.0-44.0); MEAN CORPUSCULAR HEMOGLOBIN 29.2 pg (27.0-33.0); MEAN CORPUSCULAR HGB CONC 32.5 g/dl (32.0-36.5); MEAN CORPUSCULAR VOLUME 89.9 fl (80.0-96.0); MONO # 0.5 10^3/uL (0.0-0.8); MONO % 4.7 % (0.0-5.0); NEUTROPHILS # 6.6 10^3/uL (1.8-7.7); NEUTROPHILS % 63.6 % (36.0-66.0); PLATELET COUNT, AUTOMATED 286 10^3/uL (150-450); RED BLOOD COUNT 4.45 10^6/uL (4.00-5.40); RED CELL DISTRIBUTION WIDTH 12.3 % (11.5-14.5); WHITE BLOOD COUNT 10.3 10^3/uL (4.0-10.0)
[2018-05-07 08:33] LABS: CONTROL LINE MONO RF C INT CTR LINE PRESENT; MONO REFLEX EBV COMP NEGATIVE (NEGATIVE)
[2018-05-09 00:07] LABS: EBV VIRAL CAPSID AG IgM <36.0 U/mL (0.0-35.9)
[2018-05-09 00:07] LABS: EBV AB TO NUCLEAR ANTIGEN <18.0 U/mL (0.0-17.9)
== END ==
LOC: M ADAMS 16:19
DX: J06.9 Acute upper respiratory infection, unspecified (principal)

== ENCOUNTER → 2018-05-27 | Outpatient (REF) | payer OTHER ==
[2018-05-27 20:56] LABS: TOTAL 25(OH) VITAMIN D 51.4 NG/ML (30.0-100.0)
== END ==
LOC: M SFHCADAM 08:15
DX: E55.9 Vitamin D deficiency, unspecified (principal)

== ENCOUNTER 2018-06-06 12:39 | Emergency (ER) | payer OTHER ==
[2018-06-06] MEDS: METHOCARBAMOL 500 MG TAB PO (14:30)
[2018-06-06] MEDS: KETOROLAC 60 MG/2 ML VIAL (J1885) IM (14:30)
== END 2018-06-06 14:40 | disposition home or self-care (01) ==
LOC: M ED 12:39
DX: M62.830 Muscle spasm of back (principal); V49.59XA Passenger injured in collision with other motor vehicles in traffic accident, initial encounter; Y92.410 Unspecified street and highway as the place of occurrence of the external cause
CPT/HCPCS: J1885

== ENCOUNTER → 2019-07-09 | Outpatient (REF) | payer OTHER ==
[~2019-07-09] MED LIST changes: +HYDR-3713 PO; -LR 1,000 ML IV; +MOTR200T44 PO; +NAPR-837 PO; +NAPR-885 PO; +PERC5TAB12 PO; +ROBA500T PO; +VITA50005 PO; +ZYRT10CA5 PO
[2019-07-09 13:34] LABS: ALBUMIN 3.6 GM/DL (3.2-5.2); BILIRUBIN,DIRECT 0.1 MG/DL (0.0-0.2); BILIRUBIN,TOTAL 0.4 MG/DL (0.2-1.0); THYROID STIMULATING HORMONE 5.49 uIU/ML (0.358-3.740); TOTAL PROTEIN 7.5 GM/DL (6.4-8.2)
== END ==
LOC: M SFHCADAM 08:11
PROVIDERS: ATTEND Physician Assistant Medical
DX: B35.1 Tinea unguium (principal); R79.89 Other specified abnormal findings of blood chemistry

== ENCOUNTER → 2019-08-13 | Outpatient (REF) | payer OTHER ==
[2019-08-13 12:59] LABS: ALBUMIN 3.4 GM/DL (3.2-5.2); ALT/SGPT 13 U/L (12-78); BILIRUBIN,DIRECT < 0.1 MG/DL (0.0-0.2); BILIRUBIN,TOTAL 0.3 MG/DL (0.2-1.0); TOTAL PROTEIN 7.1 GM/DL (6.4-8.2)
== END ==
LOC: M SFHCADAM 07:58
PROVIDERS: ATTEND Physician Assistant Medical
DX: B35.1 Tinea unguium (principal); R79.89 Other specified abnormal findings of blood chemistry

== ENCOUNTER → 2019-09-14 | Outpatient (REF) | payer OTHER ==
[2019-09-14 12:58] LABS: ALBUMIN 3.5 GM/DL (3.2-5.2); BILIRUBIN,DIRECT 0.1 MG/DL (0.0-0.2); BILIRUBIN,TOTAL 0.4 MG/DL (0.2-1.0); FREE T4 1.33 NG/DL (0.76-1.46); THYROID STIMULATING HORMONE 1.95 uIU/ML (0.358-3.740); TOTAL PROTEIN 7.2 GM/DL (6.4-8.2)
== END ==
LOC: M SFHCADAM 08:13
PROVIDERS: ATTEND Physician Assistant Medical
DX: E03.9 Hypothyroidism, unspecified (principal); B35.1 Tinea unguium

== ENCOUNTER → 2020-01-19 | Outpatient (REF) | payer OTHER ==
[2020-01-19 12:54] LABS: HCG, SERUM QUANTITATIVE < 1.0 MIU/ML
== END ==
LOC: M SFHCADAM 08:27
PROVIDERS: ATTEND Physician Assistant Medical
DX: E03.9 Hypothyroidism, unspecified (principal); N92.6 Irregular menstruation, unspecified

== ENCOUNTER → 2020-09-06 | Outpatient (REF) | payer OTHER ==
[2020-09-06 16:40] LABS: FREE T4 1.21 NG/DL (0.76-1.46); THYROID STIMULATING HORMONE 1.47 uIU/ML (0.358-3.740)
== END ==
LOC: M SFHCADAM 11:28
PROVIDERS: ATTEND Physician Assistant Medical
DX: E03.9 Hypothyroidism, unspecified (principal)

== ENCOUNTER → 2020-09-06 | Outpatient (CLI) | payer OTHER ==
--- NOTE | 2020-09-07 02:55 | REP ---
INDICATION: LOW BACK PAIN COMPARISON: None. TECHNIQUE: AP, lateral, bilateral oblique, and coned-down views of the lumbar spine. FINDINGS: Alignment and lordosis maintained. Vertebral bodies are intact. Disc spaces are relatively normal/age-appropriate. No acute fracture/compression injury or subluxation. No obvious spondylolysis or spondylolisthesis.. IMPRESSION: Normal Lumbosacral Spine series. <Electronically signed by Destin Bender > 09/07/20 0256
--- NOTE | 2020-09-07 02:57 | REP ---
INDICATION: PAIN IN RIGHT HIP COMPARISON: None. TECHNIQUE: AP and frog-lateral views of the right hip FINDINGS: Age-related changes noted including subtle increased sclerosis to the acetabular roof. Joint space is relatively normal. There is no evidence for acute or healed injury. No periarticular calcifications or significant osteophytosis. Surrounding soft tissues are normal.. IMPRESSION: Age-appropriate right hip radiographs. <Electronically signed by Destin Bender > 09/07/20 0256
== END ==
LOC: M ADAMS 11:29
PROVIDERS: ATTEND Physician Assistant Medical
DX: M54.5 Low back pain (principal); M25.551 Pain in right hip

== ENCOUNTER → 2021-03-06 | Outpatient (REF) | payer OTHER ==
[2021-03-06 13:21] LABS: FREE T4 1.33 NG/DL (0.76-1.46); THYROID STIMULATING HORMONE 1.31 uIU/ML (0.358-3.740)
== END ==
LOC: M SFHCADAM 09:00
PROVIDERS: ATTEND Physician Assistant Medical
DX: E03.9 Hypothyroidism, unspecified (principal)

== ENCOUNTER 2021-10-08 17:21 | Emergency (ER) | payer OTHER ==
[~2021-10-08] VITALS: Ht 149.9 cm; Wt 91.8 kg
[2021-10-08] MEDS ORDERED: LEVO50TA5 PO (17:49)
[2021-10-08 18:08] LABS: BASO % 0.3 % (0.0-1.0); EOS # 0.1 10^3/uL (0.0-0.5); EOS % 2.3 % (0.0-3.0); HEMATOCRIT 40.5 % (36.0-47.0); HEMOGLOBIN 13.4 g/dl (12.0-15.5); LYMPH # 1.7 10^3/uL (1.5-5.0); LYMPH % 27.6 % (24.0-44.0); MEAN CORPUSCULAR HEMOGLOBIN 29.6 pg (27.0-33.0); MEAN CORPUSCULAR HGB CONC 33.1 g/dl (32.0-36.5); MEAN CORPUSCULAR VOLUME 89.4 fl (80.0-96.0); MONO # 0.4 10^3/uL (0.0-0.8); MONO % 6.9 % (2.0-8.0); NEUTROPHILS # 3.9 10^3/uL (1.5-8.5); NEUTROPHILS % 62.7 % (36.0-66.0); PLATELET COUNT, AUTOMATED 253 10^3/uL (150-450); RED BLOOD COUNT 4.53 10^6/uL (4.00-5.40); WHITE BLOOD COUNT 6.2 10^3/uL (4.0-10.0)
[2021-10-08 18:35] LABS: THYROID STIMULATING HORMONE 2.73 uIU/ML (0.358-3.740)
[2021-10-08] MEDS ORDERED: ISOVUE-370 76% 100ML VIAL As Ordered ONE (18:45)
[2021-10-08] MEDS ORDERED: BENZ200C70 PO (20:00)
[2021-10-08 21:02] VITALS: BP 112/69
== END 2021-10-08 21:08 | disposition home or self-care (01) ==
LOC: M ED 17:21
DX: R07.89 Other chest pain (principal); R05.9 Cough, unspecified; E03.9 Hypothyroidism, unspecified; Z79.899 Other long term (current) drug therapy; Z79.890 Hormone replacement therapy
CPT/HCPCS: 36415; 71045; 71275; 80047; 84439; 84443; 84484; 84702; 85025; 93005; 93041; 94760; 99285; Q9967

== ENCOUNTER 2022-11-02 18:55 | Emergency (ER) | payer OTHER ==
[~2022-11-02] VITALS: Ht 149.9 cm; Wt 94.2 kg
[~2022-11-02 18:55] MED LIST changes: +BENZ200C70 PO; +LEVO50TA5 PO
[2022-11-02 18:56] VITALS: BP 136/75
[2022-11-02] MEDS ORDERED: CHLO1.4S7 MT (22:19)
[2022-11-02] MEDS ORDERED: LIDOCAINE VISCOUS 2% SOLN 15ML UDC PO ONE (22:20)
== END 2022-11-02 22:39 | disposition home or self-care (01) ==
LOC: M ED 18:55
DX: J04.0 Acute laryngitis (principal); E55.9 Vitamin D deficiency, unspecified; Z87.59 Personal history of other complications of pregnancy, childbirth and the puerperium; E03.9 Hypothyroidism, unspecified; Z79.890 Hormone replacement therapy

== ENCOUNTER → 2024-07-05 | Outpatient (CLI) | payer OTHER ==
[~2024-07-05] MED LIST changes: +CHLO1.4S7 MT
== END ==
LOC: M RAD 09:16
PROVIDERS: ATTEND Student in an Organized Health Care Education/Training Program
DX: M79.604 Pain in right leg (principal)